=== PATIENT | female | born 1960 ===

== ENCOUNTER 2017-12-23 16:06 | Emergency (ER) | payer MEDICAID ==
[~2017-12-23] VITALS: Ht 160 cm; Wt 91.3 kg
[~2017-12-23 16:06] MED LIST: ACET325T14 PO; ENOX40SY4 SQ; FAMO-79 PO; IBUP200T49 PO; LACT1CAP24 PO; METH-356 PO; NICO-485 TD; TRAM-47 PO
[2017-12-23 16:29] VITALS: BP 162/117
[2017-12-23] MEDS ORDERED: NAPR220C2 PO (17:02)
== END 2017-12-23 18:05 | disposition home or self-care (01) ==
LOC: ED 17:50
DX: M17.0 Bilateral primary osteoarthritis of knee (principal); Z90.49 Acquired absence of other specified parts of digestive tract; F17.200 Nicotine dependence, unspecified, uncomplicated
CPT/HCPCS: 99284

== ENCOUNTER 2019-02-13 12:42 | Inpatient (IN) | payer MEDICAID ==
[~2019-02-13] VITALS: Ht 160 cm; Wt 105.0 kg
[~2019-02-13 12:42] MED LIST changes: -METH-356 PO; +METH10TA2 PO; +NAPR220C2 PO
[2019-02-13] MEDS ORDERED: PIPERACILLIN/TAZO/PMX 3.375GM 50 ML IVPB ONE (14:00)
[2019-02-13] MEDS ORDERED: PHARMACOKINETIC CONSULTATION MC ONE (14:00)
[2019-02-13] MEDS ORDERED: VANCOMYCIN PER PHARMACY MC ONE (14:00)
[2019-02-13] MEDS ORDERED: SODIUM CHLORIDE 0.9% 1,000ML IVBOLUS ONE (14:00)
[2019-02-13] MEDS ORDERED: VANCOMYCIN 1,800 MG in SODIUM CHLORIDE 0.9% 250 ML IV ONE (14:30)
[2019-02-13 14:57] LABS: MEAN CORPUSCULAR HEMOGLOBIN 30.7 pg (27.0-34.8); MEAN CORPUSCULAR HGB CONC 32.1 g/dL (32.4-35.8); MEAN CORPUSCULAR VOLUME 95.6 fL (80-100); MEAN PLATELET VOLUME 7.6 fL (7.4-10.4); PLATELET COUNT 370 x10^3/uL (130-400); RED BLOOD COUNT 3.99 x10^6/uL (3.82-5.3); RED CELL DISTRIBUTION WIDTH 14.3 % (9.6-15.2)
--- NOTE | 2019-02-13 14:57 | NUR ---
VANCO STARTED AFTER CULTURES DRAWN
[2019-02-13 14:59] LABS: MD YES
[2019-02-13] MEDS ORDERED: PHARMACOKINETIC MONITORING MC PRN (15:00)
[2019-02-13 15:09] LABS: ALBUMIN 1.7 g/dL (3.4-5.0); ANION GAP 8 mmol/L (5-15); CALCIUM 7.5 mg/dL (8.5-10.1); CHLORIDE 111 mmol/L (98-107); CREATININE 2.33 mg/dL (0.55-1.02)
--- NOTE | 2019-02-13 15:18 | NUR ---
PT RESTING QUIETLY, NO DISTRESS. ABX AND FLUIDS INFUSING. VS NOTED. PT REQUESTING FOOD, KEPT NPO PENDING POSSIBLE PROCEDURE. WILL CONTINUE TO MONITOR.
--- NOTE | 2019-02-13 15:57 | NUR ---
REPORT CALLED TO SURG
[2019-02-13 16:05] LABS: BAND#(MANUAL) 6.41 x10^3/uL; BANDS%(MANUAL) 29 % (0-7); EOS#(MANUAL) 0.22 x10^3/uL (0.0-0.4); EOS% (MANUAL) 1 % (1-7); LYMPH#(MANUAL) 0.88 x10^3/uL (1-3.4); LYMPHS% (MANUAL) 4 % (22-44); MONOS#(MANUAL) 1.55 x10^3/uL (0.3-2.7); MONOS% (MANUAL) 7 % (2-9); SEG#(MANUAL) 13.04 x10^3/uL (1.8-6.8); SEGS% (MANUAL) 59 % (42-75)
[2019-02-13 16:08] LABS: <PLATELET ESTIMATE> ADEQUATE; <PLT MORPHOLOGY> NORMAL PLT MORPH; ANISOCYTOSIS 1+; PMNS WITH VACUOLES 1+; POLYCHROMASIA 1+; TOXIC GRAN 1+
[2019-02-13] MEDS ORDERED: MIDAZOLAM 1 MG/ML, 2ML ONE (16:22)
[2019-02-13] MEDS ORDERED: FENTANYL PF 250 MCG/5ML ONE (16:22)
[2019-02-13] MEDS ORDERED: SUCCINYLCHOLINE 20 MG/ML, 10ML ONE ×2 (16:24→16:32)
[2019-02-13] MEDS ORDERED: PROPOFOL 10 MG/ML, 20ML ONE (16:32)
[2019-02-13] MEDS ORDERED: ROCURONIUM 10MG/ML,5ML ONE (16:32)
[2019-02-13] MEDS ORDERED: PHENYLEPHRINE 10 MG/ML ONE (16:32)
[2019-02-13] MEDS ORDERED: SUGAMMADEX 200 MG/2 ML IVPush ONE (16:54)
[2019-02-13] MEDS ORDERED: ONDANSETRON 2MG/ML, 2ML ONE (16:54)
[2019-02-13] MEDS ORDERED: HYDROmorphone 2 MG/ML, 1ML ONE ×2 (17:17→17:27)
[2019-02-13] MEDS: HYDROmorphone 2 MG/ML, 1ML IVPush PRN ×8 (17:18→18:05)
[2019-02-13] MEDS ORDERED: FENTANYL PF 100 MCG/2ML ONE (17:26)
[2019-02-13] MEDS ORDERED: DIAZEPAM 5 MG/ML, 2ML ONE (17:27)
[2019-02-13] MEDS ORDERED: OXYcodone 5 MG/5 ML ORAL.SOL UDC ONE (17:27)
[2019-02-13] MEDS ORDERED: PROMETHAZINE 25 MG/ML, 1ML IV PRN (17:30)
[2019-02-13] MEDS ORDERED: MIDAZOLAM 1 MG/ML, 2ML IV PRN (17:30)
[2019-02-13] MEDS ORDERED: LABETALOL 5MG/ML, 20ML IV PRN (17:30)
[2019-02-13] MEDS ORDERED: MEPERIDINE/PF 25MG/ML,1ML IVPush PRN (17:30)
[2019-02-13] MEDS ORDERED: PROMETHAZINE 12.5 MG SUPP PR PRN (17:30)
[2019-02-13] MEDS ORDERED: HALOPERIDOL 5 MG/ML IV PRN (17:30)
[2019-02-13] MEDS ORDERED: ALBUTEROL SULFATE 2.5 MG/3 ML NPPB PRN (17:30)
[2019-02-13] MEDS ORDERED: ONDANSETRON 2MG/ML, 2ML IV PRN (17:30)
[2019-02-13] MEDS ORDERED: EPHEDRINE 50 MG/ML, 1ML IVPush PRN (17:30)
[2019-02-13] MEDS ORDERED: ONDANSETRON ODT 8 MG PO PRN (17:30)
[2019-02-13] MEDS ORDERED: hydrALAzine 20 MG/ML, 1ML IV PRN (17:30)
[2019-02-13] MEDS ORDERED: OXYcodone 5 MG/5 ML ORAL.SOL UDC PO PRN (17:30)
[2019-02-13] MEDS: DIAZEPAM 5 MG/ML, 2ML IVPush PRN ×2 (17:32→17:45)
[2019-02-13] MEDS: FENTANYL PF 100 MCG/2ML IV PRN ×2 (17:35→17:45)
[2019-02-13] MEDS ORDERED: MEPERIDINE/PF 25MG/ML,1ML ONE (18:25)
[2019-02-13] MEDS ORDERED: METH10OR PO (19:38)
[2019-02-13] MEDS ORDERED: morphine SULFATE 10 MG/ML, 1ML IVPush PRN (20:00)
[2019-02-13] MEDS ORDERED: PHARMACY MAY ADJ FOR RENAL FX MC PRN (20:00)
[2019-02-13] MEDS ORDERED: VANCOMYCIN PER PHARMACY MC PRN ×2 (20:00)
[2019-02-13] MEDS ORDERED: PIPERACILLIN/TAZO/PMX 3.375GM 50 ML IV SCH ×2 (20:00→21:00)
[2019-02-13] MEDS ORDERED: POLYETHYLENE GLYCOL 17 GM PACKET PO PRN (20:30)
[2019-02-13] MEDS ORDERED: ONDANSETRON ODT 4 MG PO PRN (20:30)
[2019-02-13] MEDS ORDERED: FLU VACC QS2019-20 36MOS UP/PF 0.5 ML IM-VACC ONE (20:30)
[2019-02-13] MEDS ORDERED: BISACODYL 10 MG SUPP PR PRN (20:30)
[2019-02-13] MEDS ORDERED: ACETAMINOPHEN 325 MG TABLET PO PRN (20:30)
[2019-02-13] MEDS: PIPERACILLIN/TAZO/PMX 2.25GM 50 ML IV SCH (21:00)
[2019-02-13] MEDS ORDERED: PIPERACILLIN/TAZO/PMX 2.25GM 50 ML IV SCH (21:00)
[2019-02-13] MEDS: HEPARIN 5,000 UNITS/ML, 1ML SQ SCH (21:12)
[2019-02-13] MEDS: SODIUM CHLORIDE 0.45% 1,000 ML IV SCH (21:13)
[2019-02-13 22:00] VITALS: BP_SYST 11; BP_SYST 111; BP_DIAS 72
[2019-02-13] MEDS: NICOTINE 14MG/24 HR PATCH.TD24 TD SCH (22:18)
[2019-02-13 23:58] VITALS: BP 107/67
[2019-02-14] MEDS: PIPERACILLIN/TAZO/PMX 2.25GM 50 ML IV SCH ×6 (02:46→23:49)
[2019-02-14 04:00] VITALS: BP 106/70
[2019-02-14 04:38] LABS: MICROSCOPIC AUTO
[2019-02-14 04:43] LABS: CULTURE INDICATED? NO
[2019-02-14] MEDS: HEPARIN 5,000 UNITS/ML, 1ML SQ SCH ×3 (05:04→21:39)
[2019-02-14 05:05] LABS: MEAN CORPUSCULAR HEMOGLOBIN 30.5 pg (27.0-34.8); MEAN CORPUSCULAR HGB CONC 32.3 g/dL (32.4-35.8); MEAN CORPUSCULAR VOLUME 94.6 fL (80-100); MEAN PLATELET VOLUME 7.7 fL (7.4-10.4); PLATELET COUNT 339 x10^3/uL (130-400); RED CELL DISTRIBUTION WIDTH 14.1 % (9.6-15.2)
[2019-02-14 05:15] LABS: ALBUMIN 1.4 g/dL (3.4-5.0); ANION GAP 8 mmol/L (5-15); CALCIUM 7.2 mg/dL (8.5-10.1); CHLORIDE 111 mmol/L (98-107)
[2019-02-14 05:21] LABS: ALANINE AMINOTRANSFERASE 14 U/L (12-78); ALKALINE PHOSPHATASE 130 U/L (45-117); BILIRUBIN,TOTAL 0.3 mg/dL (0.2-1.0); CREATININE 2.36 mg/dL (0.55-1.02); TOTAL PROTEIN 6.6 g/dL (6.4-8.2)
[2019-02-14 05:44] LABS: MD YES
[2019-02-14 05:48] LABS: BAND#(MANUAL) 2.39 x10^3/uL; BANDS%(MANUAL) 13 % (0-7); EOS#(MANUAL) 0.55 x10^3/uL (0.0-0.4); EOS% (MANUAL) 3 % (1-7); LYMPHS% (MANUAL) 6 % (22-44); MONOS#(MANUAL) 0.37 x10^3/uL (0.3-2.7); MONOS% (MANUAL) 2 % (2-9); SEG#(MANUAL) 13.98 x10^3/uL (1.8-6.8); SEGS% (MANUAL) 76 % (42-75)
[2019-02-14 05:49] LABS: <PLATELET ESTIMATE> ADEQUATE; <PLT MORPHOLOGY> NORMAL PLT MORPH; <RBC MORPHOLOGY> NORMAL
[2019-02-14] MEDS: SODIUM CHLORIDE 0.45% 1,000 ML IV SCH ×2 (06:22→13:00)
[2019-02-14 07:03] VITALS: BP 108/71
[2019-02-14] MEDS: CALCIUM GLUCONATE 4.6 MEQ in SODIUM CHLORIDE 0.9% 50 ML IV SCH ×2 (08:05→21:00)
[2019-02-14] MEDS: METHADONE 5 MG TABLET PO SCH (08:05)
[2019-02-14] MEDS: SENNA/DOCUSATE TABLET PO SCH (08:06)
[2019-02-14 16:13] VITALS: BP 119/72
[2019-02-14 20:03] VITALS: BP 97/60
[2019-02-14] MEDS: NICOTINE 14MG/24 HR PATCH.TD24 TD SCH (21:38)
[2019-02-15] MEDS: CALCIUM GLUCONATE 4.6 MEQ in SODIUM CHLORIDE 0.9% 50 ML IV SCH ×3 (00:27→21:10)
[2019-02-15 02:00] VITALS: BP 112/74
[2019-02-15] MEDS: SODIUM CHLORIDE 0.45% 1,000 ML IV SCH ×3 (02:22→23:36)
[2019-02-15] MEDS: PIPERACILLIN/TAZO/PMX 2.25GM 50 ML IV SCH ×4 (05:24→23:36)
[2019-02-15] MEDS: HEPARIN 5,000 UNITS/ML, 1ML SQ SCH ×3 (05:25→21:10)
[2019-02-15 05:43] LABS: MEAN CORPUSCULAR HEMOGLOBIN 30.5 pg (27.0-34.8); MEAN CORPUSCULAR HGB CONC 32.1 g/dL (32.4-35.8); MEAN CORPUSCULAR VOLUME 95.2 fL (80-100); MEAN PLATELET VOLUME 7.6 fL (7.4-10.4); PLATELET COUNT 373 x10^3/uL (130-400); RED BLOOD COUNT 3.66 x10^6/uL (3.82-5.3); RED CELL DISTRIBUTION WIDTH 14.5 % (9.6-15.2)
[2019-02-15 05:47] LABS: ALBUMIN 1.4 g/dL (3.4-5.0); ANION GAP 6 mmol/L (5-15); CALCIUM 7.8 mg/dL (8.5-10.1); CHLORIDE 113 mmol/L (98-107)
[2019-02-15 05:50] LABS: CREATININE 2.34 mg/dL (0.55-1.02); VANCOMYCIN,RANDOM 10.2 mcg/mL
[2019-02-15 06:06] LABS: MD YES
[2019-02-15 06:11] LABS: <PLATELET ESTIMATE> ADEQUATE; <PLT MORPHOLOGY> NORMAL PLT MORPH; <RBC MORPHOLOGY> NORMAL; BAND#(MANUAL) 1.56 x10^3/uL; BANDS%(MANUAL) 12 % (0-7); BASOS#(MANUAL) 0.13 x10^3/uL (0-0.1); BASOS% (MANUAL) 1 % (0-1); EOS#(MANUAL) 0.52 x10^3/uL (0.0-0.4); EOS% (MANUAL) 4 % (1-7); LYMPHS% (MANUAL) 10 % (22-44); MONOS#(MANUAL) 0.52 x10^3/uL (0.3-2.7); MONOS% (MANUAL) 4 % (2-9); MYELOCYTES# (MANUAL) 0.13 x10^3/uL (0-0); MYELOCYTES% (MANUAL) 1 % (0-0); SEG#(MANUAL) 8.84 x10^3/uL (1.8-6.8); SEGS% (MANUAL) 68 % (42-75); TOXIC GRAN 1+
[2019-02-15 07:29] VITALS: BP 105/67
[2019-02-15] MEDS: SENNA/DOCUSATE TABLET PO SCH (07:41)
[2019-02-15] MEDS: MAGNESIUM OXIDE 400 MG TABLET PO SCH ×2 (08:44→21:11)
[2019-02-15] MEDS: ASCORBIC ACID 500 MG TABLET PO SCH ×2 (08:44→17:21)
[2019-02-15] MEDS: MULTIVITS,STRESS FORMULA 1 TABLET PO SCH (08:44)
[2019-02-15] MEDS: METHADONE 5 MG TABLET PO SCH (08:44)
[2019-02-15] MEDS ORDERED: VANCOMYCIN 1,800 MG in SODIUM CHLORIDE 0.9% 250 ML IV ONE (11:00)
[2019-02-15 14:11] VITALS: BP 127/82
[2019-02-15 20:09] VITALS: BP 135/87
[2019-02-15] MEDS: NICOTINE 14MG/24 HR PATCH.TD24 TD SCH (21:11)
[2019-02-16 02:20] VITALS: BP 140/91
[2019-02-16] MEDS: HEPARIN 5,000 UNITS/ML, 1ML SQ SCH ×3 (05:33→22:59)
[2019-02-16] MEDS: PIPERACILLIN/TAZO/PMX 2.25GM 50 ML IV SCH ×4 (05:33→23:00)
[2019-02-16 06:14] LABS: BASOPHILS # (AUTO) 0.06 x10^3/uL (0-0.1); BASOPHILS % (AUTO) 1 % (0-1); EOSINOPHILS # (AUTO) 0.43 x10^3/uL (0-0.4); EOSINOPHILS % (AUTO) 4 % (1-7); LYMPHOCYTES # (AUTO) 0.99 x10^3/uL (1-3.4); LYMPHOCYTES % (AUTO) 9 % (22-44); MD NO; MEAN CORPUSCULAR HEMOGLOBIN 30.3 pg (27.0-34.8); MEAN CORPUSCULAR HGB CONC 32.6 g/dL (32.4-35.8); MEAN CORPUSCULAR VOLUME 92.7 fL (80-100); MONOCYTES # (AUTO) 0.65 x10^3/uL (0.2-0.8); MONOCYTES % (AUTO) 6 % (2-9); NEUTROPHILS # (AUTO) 8.49 x10^3/uL (1.8-6.8); NEUTROPHILS % (AUTO) 80 % (42-75); PLATELET COUNT 379 x10^3/uL (130-400); RED BLOOD COUNT 3.93 x10^6/uL (3.82-5.3); RED CELL DISTRIBUTION WIDTH 13.9 % (9.6-15.2)
[2019-02-16 06:24] LABS: ALBUMIN 1.5 g/dL (3.4-5.0); ANION GAP 7 mmol/L (5-15); CALCIUM 8.1 mg/dL (8.5-10.1); CHLORIDE 111 mmol/L (98-107)
[2019-02-16 06:27] LABS: CREATININE 2.27 mg/dL (0.55-1.02)
[2019-02-16 06:51] VITALS: BP 155/98
[2019-02-16] MEDS: SODIUM CHLORIDE 0.45% 1,000 ML IV SCH (07:40)
[2019-02-16] MEDS: MULTIVITS,STRESS FORMULA 1 TABLET PO SCH (07:43)
[2019-02-16] MEDS: ASCORBIC ACID 500 MG TABLET PO SCH ×2 (07:43→17:00)
[2019-02-16] MEDS: MAGNESIUM OXIDE 400 MG TABLET PO SCH ×2 (07:44→22:59)
[2019-02-16] MEDS: METHADONE 5 MG TABLET PO SCH (07:44)
[2019-02-16] MEDS: SENNA/DOCUSATE TABLET PO SCH (07:45)
[2019-02-16] MEDS ORDERED: HYDROmorphone 1 MG/ML, 1ML INJ IM PRN (12:00)
[2019-02-16 13:15] VITALS: BP 134/87
[2019-02-16] MEDS ORDERED: ACET325T26 PO (16:22)
[2019-02-16] MEDS ORDERED: NICO-486 TD (16:22)
[2019-02-16] MEDS ORDERED: MAGN400T50 PO (16:22)
[2019-02-16] MEDS ORDERED: ASCO500T6 PO (16:22)
[2019-02-16] MEDS ORDERED: MULT1TAB76 PO (16:22)
[2019-02-16] MEDS ORDERED: MORP15TA PO (16:27)
[2019-02-16] MEDS ORDERED: POLY17PO5 PO (16:27)
[2019-02-16 19:11] VITALS: BP 149/101
[2019-02-16] MEDS ORDERED: LORazepam 0.5MG TABLET PO ONE (22:30)
[2019-02-16] MEDS: NICOTINE 14MG/24 HR PATCH.TD24 TD SCH (22:59)
[2019-02-16 23:11] LABS: TROPONIN I < 0.015 ng/mL (0.000-0.045)
[2019-02-17 00:26] VITALS: BP 161/106
[2019-02-17] MEDS ORDERED: FUROSEMIDE 20 MG/2 ML IV ONE (01:00)
[2019-02-17] MEDS: HEPARIN 5,000 UNITS/ML, 1ML SQ SCH ×2 (06:12→13:11)
[2019-02-17] MEDS: PIPERACILLIN/TAZO/PMX 2.25GM 50 ML IV SCH ×2 (06:12→11:21)
[2019-02-17 07:09] LABS: VANCOMYCIN,RANDOM 15.8 mcg/mL
[2019-02-17] MEDS: METHADONE 5 MG TABLET PO SCH (08:05)
[2019-02-17] MEDS: SENNA/DOCUSATE TABLET PO SCH (08:06)
[2019-02-17] MEDS: MAGNESIUM OXIDE 400 MG TABLET PO SCH (08:06)
[2019-02-17] MEDS: MULTIVITS,STRESS FORMULA 1 TABLET PO SCH (08:06)
[2019-02-17] MEDS: ASCORBIC ACID 500 MG TABLET PO SCH (08:06)
[2019-02-17 09:40] VITALS: BP 133/85
[2019-02-17] MEDS ORDERED: FLU VACC QS2019-20 36MOS UP/PF 0.5 ML IM-VACC ONE (10:30)
[2019-02-17] MEDS ORDERED: VANCOMYCIN 1,800 MG in SODIUM CHLORIDE 0.9% 250 ML IV ONE (12:00)
[2019-02-17 13:13] VITALS: BP 133/84
[2019-02-17] MEDS ORDERED: PIPE2.255 IV (14:39)
== END 2019-02-17 13:25 | DRG 871 ==
LOC: ED 14:40 → 4NE 19:03 → ED 20:58 → 4NE 20:59
PROVIDERS: ADMIT Family Medicine; ATTEND Internal Medicine
PROC: 0Y9D0ZZ Drainage of Left Upper Leg, Open Approach (ICD-10-PCS; principal; 2019-02-13 18:00)
PROC: 0T9B70Z Drainage of Bladder with Drainage Device, Via Natural or Artificial Opening (ICD-10-PCS; 2019-02-14)
PROC: 02HV33Z Insertion of Infusion Device into Superior Vena Cava, Percutaneous Approach (ICD-10-PCS; 2019-02-15)
PROC: B548ZZA Ultrasonography of Superior Vena Cava, Guidance (ICD-10-PCS; 2019-02-15)
PROC: B5181ZA Fluoroscopy of Superior Vena Cava using Low Osmolar Contrast, Guidance (ICD-10-PCS; 2019-02-15)
DX: A41.9 Sepsis, unspecified organism (principal); E43 Unspecified severe protein-calorie malnutrition; Z68.41 Body mass index [BMI] 40.0-44.9, adult; E87.2 Acidosis; L02.416 Cutaneous abscess of left lower limb; N17.9 Acute kidney failure, unspecified; F11.10 Opioid abuse, uncomplicated; F12.90 Cannabis use, unspecified, uncomplicated; F17.210 Nicotine dependence, cigarettes, uncomplicated; N18.9 Chronic kidney disease, unspecified; Z90.49 Acquired absence of other specified parts of digestive tract; Z71.51 Drug abuse counseling and surveillance of drug abuser; Z88.5 Allergy status to narcotic agent; Z88.8 Allergy status to other drugs, medicaments and biological substances; Z23 Encounter for immunization
CPT/HCPCS: 36415; 36573; 71045; 80048; 80053; 80069; 80202; 81001; 82040; 82436; 82570; 83605; 83735; 83880; 84133; 84145; 84300; 84484; 85025; 87040; 87070; 87075; 87077; 87147; 87186; 87205; 90686; 93005; 99285; G0378; J0610; J1170; J1644; J2250; J2405; J2543; J2704; J3010; J3360; J3370; C1751; J0330; J1940; J2175; J2270; J2370; J7030; J7050

== ENCOUNTER 2019-02-18 10:46 | Inpatient (IN) | payer MEDICAID ==
[~2019-02-18] VITALS: Ht 160 cm; Wt 115.0 kg
[~2019-02-18 10:46] MED LIST changes: +ACET325T26 PO; +ASCO500T6 PO; +MAGN400T50 PO; +METH10OR PO; +MORP15TA PO; +MULT1TAB76 PO; +NICO-486 TD; +PIPE2.255 IV; +POLY17PO5 PO
--- NOTE | 2019-02-18 11:04 | NUR ---
ERP AT BEDSIDE FOR EVALUATION. PT RESTING COMFORTABLY IN BED, DENIES ANY NEEDS OR CONCERNS AT THIS TIME. CALL LIGHT IN REACH.
[2019-02-18] MEDS ORDERED: HYDROmorphone 1 MG/ML, 1ML INJ ONE (11:27)
[2019-02-18] MEDS ORDERED: HYDROmorphone 2 MG/ML, 1ML IVPush ONE (11:30)
--- NOTE | 2019-02-18 11:35 | NUR ---
dr albert spoke with dr hoffmann restaurant front manager for dr mendez
[2019-02-18 11:50] LABS: MEAN CORPUSCULAR HEMOGLOBIN 30.4 pg (27.0-34.8); MEAN CORPUSCULAR HGB CONC 33.6 g/dL (32.4-35.8); MEAN CORPUSCULAR VOLUME 90.6 fL (80-100); PLATELET COUNT 339 x10^3/uL (130-400); RED BLOOD COUNT 3.96 x10^6/uL (3.82-5.3); RED CELL DISTRIBUTION WIDTH 13.6 % (9.6-15.2)
[2019-02-18 11:59] LABS: ALBUMIN 1.8 g/dL (3.4-5.0); ANION GAP 6 mmol/L (5-15); CALCIUM 7.7 mg/dL (8.5-10.1); CHLORIDE 110 mmol/L (98-107); CREATININE 2.17 mg/dL (0.55-1.02)
[2019-02-18 12:08] LABS: MD YES
[2019-02-18 12:09] LABS: BAND#(MANUAL) 0.18 x10^3/uL; BANDS%(MANUAL) 2 % (0-7); EOS#(MANUAL) 0.27 x10^3/uL (0.0-0.4); EOS% (MANUAL) 3 % (1-7); LYMPH#(MANUAL) 1.18 x10^3/uL (1-3.4); LYMPHS% (MANUAL) 13 % (22-44); METAMYELOCYTES# (MANUAL) 0.18 x10^3/uL (0-0); METAMYELOCYTES% (MANUAL) 2 % (0-1); MONOS#(MANUAL) 0.18 x10^3/uL (0.3-2.7); MONOS% (MANUAL) 2 % (2-9); SEGS% (MANUAL) 78 % (42-75)
[2019-02-18 12:10] LABS: <PLATELET ESTIMATE> ADEQUATE; <PLT MORPHOLOGY> NORMAL PLT MORPH; <RBC MORPHOLOGY> NORMAL
[2019-02-18] MEDS ORDERED: BISACODYL 10 MG SUPP PR PRN (13:00)
[2019-02-18] MEDS ORDERED: ONDANSETRON 2MG/ML, 2ML IVPush PRN (13:00)
[2019-02-18] MEDS: PIPERACILLIN/TAZO/PMX 3.375GM 50 ML IV SCH ×2 (13:00→18:34)
[2019-02-18] MEDS ORDERED: ONDANSETRON ODT 4 MG PO PRN (13:00)
[2019-02-18] MEDS ORDERED: POLYETHYLENE GLYCOL 17 GM PACKET PO PRN (13:00)
[2019-02-18] MEDS ORDERED: PIPERACILLIN/TAZO/PMX 3.375GM 50 ML ONE (13:17)
--- NOTE | 2019-02-18 13:19 | NUR ---
report to enrique beauchamp. pt in imaging at this time. atb ready to infuse.
--- NOTE | 2019-02-18 13:35 | NUR ---
PT RETURNED TO ROOM. UPDATED ON PLAN OF CARE. MEDICATED PER APR. PT AWAITING TRANSPORT AT THIS TIME. CALL LIGHT IN REACH.
[2019-02-18 13:46] LABS: TROPONIN I < 0.015 ng/mL (0.000-0.045)
[2019-02-18 13:48] VITALS: BP 148/98
[2019-02-18] MEDS: SENNA/DOCUSATE TABLET PO SCH (14:07)
[2019-02-18] MEDS: ENOXAPARIN 30 MG/0.3 ML SQ SCH (14:07)
[2019-02-18] MEDS: NICOTINE 14MG/24 HR PATCH.TD24 TD SCH (14:07)
[2019-02-18] MEDS: METHADONE 10 MG TABLET PO SCH (14:08)
[2019-02-18] MEDS ORDERED: FUROSEMIDE 20 MG/2 ML IV ONE (15:00)
[2019-02-18] MEDS: IBUPROFEN 200 MG TABLET PO PRN ×2 (15:56→22:27)
[2019-02-18 19:04] VITALS: BP 165/105
[2019-02-18 19:19] VITALS: BP 154/99
[2019-02-18] MEDS ORDERED: hydrALAzine 20 MG/ML, 1ML IV ONE (19:44)
[2019-02-18 20:42] VITALS: BP 166/88
[2019-02-18] MEDS: ACETAMINOPHEN 325 MG TABLET PO PRN (21:56)
[2019-02-19 00:22] VITALS: BP 165/95
[2019-02-19] MEDS: PIPERACILLIN/TAZO/PMX 3.375GM 50 ML IV SCH ×4 (01:30→18:46)
[2019-02-19] MEDS: IBUPROFEN 200 MG TABLET PO PRN ×2 (04:40→21:03)
[2019-02-19] MEDS: MULTIVITS,STRESS FORMULA 1 TABLET PO SCH (08:15)
[2019-02-19] MEDS: METHADONE 10 MG TABLET PO SCH (08:15)
[2019-02-19] MEDS: ACETAMINOPHEN 325 MG TABLET PO PRN ×2 (08:15→14:41)
[2019-02-19] MEDS: SENNA/DOCUSATE TABLET PO SCH (08:15)
[2019-02-19 08:37] LABS: BASOPHILS # (AUTO) 0.03 x10^3/uL (0-0.1); BASOPHILS % (AUTO) 0 % (0-1); EOSINOPHILS # (AUTO) 0.56 x10^3/uL (0-0.4); EOSINOPHILS % (AUTO) 7 % (1-7); LYMPHOCYTES # (AUTO) 1.33 x10^3/uL (1-3.4); LYMPHOCYTES % (AUTO) 17 % (22-44); MD NO; MEAN CORPUSCULAR HEMOGLOBIN 30.2 pg (27.0-34.8); MEAN CORPUSCULAR HGB CONC 32.8 g/dL (32.4-35.8); MEAN CORPUSCULAR VOLUME 92.1 fL (80-100); MEAN PLATELET VOLUME 6.9 fL (7.4-10.4); MONOCYTES # (AUTO) 0.53 x10^3/uL (0.2-0.8); MONOCYTES % (AUTO) 7 % (2-9); NEUTROPHILS # (AUTO) 5.51 x10^3/uL (1.8-6.8); NEUTROPHILS % (AUTO) 69 % (42-75); PLATELET COUNT 336 x10^3/uL (130-400); RED BLOOD COUNT 4.19 x10^6/uL (3.82-5.3); RED CELL DISTRIBUTION WIDTH 13.8 % (9.6-15.2)
[2019-02-19 08:45] LABS: ANION GAP 8 mmol/L (5-15); CHLORIDE 108 mmol/L (98-107); CREATININE 2.24 mg/dL (0.55-1.02)
[2019-02-19 08:56] VITALS: BP 168/99
[2019-02-19] MEDS: morphine SULFATE 10 MG/ML, 1ML IVPush PRN (09:33)
[2019-02-19] MEDS: ENOXAPARIN 30 MG/0.3 ML SQ SCH (13:21)
[2019-02-19 13:37] VITALS: BP 160/103
[2019-02-19] MEDS: NICOTINE 14MG/24 HR PATCH.TD24 TD SCH (13:41)
[2019-02-19] MEDS: hydrALAzine 20 MG/ML, 1ML IV PRN (14:09)
[2019-02-19 15:40] VITALS: BP 130/92
[2019-02-19 18:43] VITALS: BP 169/97
[2019-02-19] MEDS: METOPROLOL TARTRATE 25 MG TABLET PO SCH (21:31)
[2019-02-19 21:33] VITALS: BP 146/93
[2019-02-20 00:35] VITALS: BP 143/85
[2019-02-20] MEDS: PIPERACILLIN/TAZO/PMX 3.375GM 50 ML IV SCH ×3 (00:45→14:25)
[2019-02-20] MEDS: ACETAMINOPHEN 325 MG TABLET PO PRN ×4 (03:50→21:10)
[2019-02-20 06:48] LABS: ANION GAP 7 mmol/L (5-15); CALCIUM 8.1 mg/dL (8.5-10.1); CHLORIDE 109 mmol/L (98-107); CREATININE 2.17 mg/dL (0.55-1.02)
[2019-02-20 06:52] VITALS: BP 152/91
[2019-02-20 06:55] LABS: BASOPHILS # (AUTO) 0.04 x10^3/uL (0-0.1); BASOPHILS % (AUTO) 1 % (0-1); EOSINOPHILS % (AUTO) 8 % (1-7); LYMPHOCYTES # (AUTO) 1.56 x10^3/uL (1-3.4); LYMPHOCYTES % (AUTO) 18 % (22-44); MD NO; MEAN CORPUSCULAR HGB CONC 32.7 g/dL (32.4-35.8); MEAN CORPUSCULAR VOLUME 91.8 fL (80-100); MEAN PLATELET VOLUME 7.4 fL (7.4-10.4); MONOCYTES # (AUTO) 0.49 x10^3/uL (0.2-0.8); MONOCYTES % (AUTO) 6 % (2-9); NEUTROPHILS # (AUTO) 6.02 x10^3/uL (1.8-6.8); NEUTROPHILS % (AUTO) 68 % (42-75); PLATELET COUNT 337 x10^3/uL (130-400); RED BLOOD COUNT 4.07 x10^6/uL (3.82-5.3); RED CELL DISTRIBUTION WIDTH 13.9 % (9.6-15.2)
[2019-02-20 08:09] LABS: TROPONIN I 0.021 ng/mL (0.000-0.045)
[2019-02-20 08:26] LABS: CHOL/HDL RATIO 5.4
[2019-02-20] MEDS: MULTIVITS,STRESS FORMULA 1 TABLET PO SCH (08:50)
[2019-02-20] MEDS: SENNA/DOCUSATE TABLET PO SCH (08:50)
[2019-02-20] MEDS: METHADONE 10 MG TABLET PO SCH (08:50)
[2019-02-20] MEDS: METOPROLOL TARTRATE 25 MG TABLET PO SCH ×2 (08:54→20:22)
[2019-02-20] MEDS ORDERED: REGADENOSON 0.4 MG/5 ML SYRINGE ONE (09:09)
[2019-02-20] MEDS: FUROSEMIDE 20 MG TABLET PO SCH (11:03)
[2019-02-20 12:30] VITALS: BP 156/93
[2019-02-20] MEDS: NICOTINE 14MG/24 HR PATCH.TD24 TD SCH (14:24)
[2019-02-20] MEDS: ENOXAPARIN 30 MG/0.3 ML SQ SCH (14:25)
[2019-02-20] MEDS: LISINOPRIL 10 MG TABLET PO SCH (17:19)
[2019-02-20 17:20] VITALS: BP 155/94
[2019-02-20 20:07] VITALS: BP_SYST 156; BP_SYST 176; BP_DIAS 102; BP_DIAS 129
[2019-02-20] MEDS: SULFAMETH./TRIMETHOPRIM DS 800MG/160MG TABLET PO SCH (20:23)
[2019-02-20] MEDS: hydrALAzine 20 MG/ML, 1ML IV PRN (20:23)
[2019-02-20] MEDS ORDERED: ATORVASTATIN 40 MG TABLET PO SCH (21:00)
[2019-02-20 21:11] VITALS: BP 159/99
[2019-02-21 00:30] VITALS: BP 140/88
[2019-02-21 07:17] VITALS: BP 139/88
[2019-02-21] MEDS ORDERED: FURO20TA3 PO (08:05)
[2019-02-21] MEDS ORDERED: ACET325T26 PO (08:05)
[2019-02-21] MEDS ORDERED: METH10OR PO (08:05)
[2019-02-21] MEDS ORDERED: Sulfameth./Trimethoprim Ds PO (08:05)
[2019-02-21] MEDS ORDERED: LISI-167 PO (08:05)
[2019-02-21] MEDS ORDERED: ATOR40TA78 PO (08:05)
[2019-02-21] MEDS ORDERED: TRAM50TA2 PO (08:05)
[2019-02-21] MEDS ORDERED: METO-93 PO (08:05)
[2019-02-21] MEDS: MULTIVITS,STRESS FORMULA 1 TABLET PO SCH (08:26)
[2019-02-21] MEDS: METHADONE 10 MG TABLET PO SCH (08:26)
[2019-02-21] MEDS: SENNA/DOCUSATE TABLET PO SCH (08:27)
[2019-02-21] MEDS: LISINOPRIL 10 MG TABLET PO SCH (08:27)
[2019-02-21] MEDS: FUROSEMIDE 20 MG TABLET PO SCH (08:27)
[2019-02-21] MEDS: SULFAMETH./TRIMETHOPRIM DS 800MG/160MG TABLET PO SCH (08:27)
[2019-02-21] MEDS ORDERED: METOPROLOL TARTRATE 25 MG TABLET PO SCH (09:00)
[2019-02-21] MEDS: morphine SULFATE 10 MG/ML, 1ML IVPush PRN (10:55)
[2019-02-21 13:41] VITALS: BP 145/86
[2019-02-21] MEDS: ENOXAPARIN 30 MG/0.3 ML SQ SCH (13:53)
[2019-02-21] MEDS: NICOTINE 14MG/24 HR PATCH.TD24 TD SCH (13:53)
== END 2019-02-21 15:09 | disposition home or self-care (01) | DRG 603 ==
LOC: ED 11:52 → 4NE 12:27 → DCLOUNGE 02-21 14:49
PROVIDERS: ADMIT Hospitalist; ATTEND Family Medicine
PROC: 2W0PX6Z Change Pressure Dressing on Left Upper Leg (ICD-10-PCS; principal; 2019-02-18)
DX: L02.416 Cutaneous abscess of left lower limb (principal); E44.0 Moderate protein-calorie malnutrition; I50.20 Unspecified systolic (congestive) heart failure; Z68.41 Body mass index [BMI] 40.0-44.9, adult; B95.61 Methicillin susceptible Staphylococcus aureus infection as the cause of diseases classified elsewhere; E78.5 Hyperlipidemia, unspecified; G89.4 Chronic pain syndrome; I08.0 Rheumatic disorders of both mitral and aortic valves; N18.3 Chronic kidney disease, stage 3 (moderate); F17.200 Nicotine dependence, unspecified, uncomplicated; Z88.5 Allergy status to narcotic agent
CPT/HCPCS: 36415; 71046; 78452; 78582; 80048; 80061; 82040; 83880; 84484; 85025; 93005; 93017; 93306; 96374; 99285; G0378; J1170; J1650; J2543; J2785; A9502; A9540; A9558; J0360; J1940; J2270

== ENCOUNTER 2019-03-04 14:26 | Outpatient (CLI) | payer MEDICAID ==
[~2019-03-04 14:26] MED LIST changes: +ATOR40TA78 PO; +FURO20TA3 PO; +LISI-167 PO; +METO-93 PO; +Sulfameth./Trimethoprim Ds PO; +TRAM50TA2 PO
== END 2019-03-04 23:59 | disposition home or self-care (01) ==
LOC: WOUND 14:26
PROVIDERS: ATTEND Internal Medicine
DX: T81.89XA Other complications of procedures, not elsewhere classified, initial encounter (principal); M71.052 Abscess of bursa, left hip; I11.0 Hypertensive heart disease with heart failure; I50.9 Heart failure, unspecified; F17.200 Nicotine dependence, unspecified, uncomplicated; Y83.8 Other surgical procedures as the cause of abnormal reaction of the patient, or of later complication, without mention of misadventure at the time of the procedure; Y92.89 Other specified places as the place of occurrence of the external cause
CPT/HCPCS: 11042; 11045; 97605; 99215

== ENCOUNTER 2019-03-18 10:33 | Outpatient (CLI) | payer MEDICAID | END 2019-03-18 23:59 | disposition home or self-care (01) | LOC: WOUND 10:33 | PROVIDERS: ATTEND Internal Medicine | DX: T81.89XD Other complications of procedures, not elsewhere classified, subsequent encounter (principal); I13.0 Hypertensive heart and chronic kidney disease with heart failure and stage 1 through stage 4 chronic kidney disease, or unspecified chronic kidney disease; N18.3 Chronic kidney disease, stage 3 (moderate); I50.20 Unspecified systolic (congestive) heart failure; E78.5 Hyperlipidemia, unspecified; G89.4 Chronic pain syndrome; F12.90 Cannabis use, unspecified, uncomplicated; F17.210 Nicotine dependence, cigarettes, uncomplicated; F11.10 Opioid abuse, uncomplicated; Z90.49 Acquired absence of other specified parts of digestive tract; Z88.5 Allergy status to narcotic agent; Z88.8 Allergy status to other drugs, medicaments and biological substances; Z86.14 Personal history of Methicillin resistant Staphylococcus aureus infection; Y83.8 Other surgical procedures as the cause of abnormal reaction of the patient, or of later complication, without mention of misadventure at the time of the procedure | CPT/HCPCS: 97597; 97598 ==

== ENCOUNTER → 2019-03-25 | Outpatient (CLI) | payer MEDICAID | END | disposition home or self-care (01) | LOC: WOUND 10:34 | PROVIDERS: ATTEND Internal Medicine | DX: T81.89XD Other complications of procedures, not elsewhere classified, subsequent encounter (principal); I13.0 Hypertensive heart and chronic kidney disease with heart failure and stage 1 through stage 4 chronic kidney disease, or unspecified chronic kidney disease; N18.3 Chronic kidney disease, stage 3 (moderate); I50.20 Unspecified systolic (congestive) heart failure; E78.5 Hyperlipidemia, unspecified; G89.4 Chronic pain syndrome; F12.90 Cannabis use, unspecified, uncomplicated; F17.210 Nicotine dependence, cigarettes, uncomplicated; F11.10 Opioid abuse, uncomplicated; Z90.49 Acquired absence of other specified parts of digestive tract; Z88.5 Allergy status to narcotic agent; Z88.8 Allergy status to other drugs, medicaments and biological substances; Z86.14 Personal history of Methicillin resistant Staphylococcus aureus infection; Y83.8 Other surgical procedures as the cause of abnormal reaction of the patient, or of later complication, without mention of misadventure at the time of the procedure | CPT/HCPCS: 97597 ==

== ENCOUNTER 2019-04-01 08:07 | Outpatient (CLI) | payer MEDICAID | END 2019-04-01 23:59 | disposition home or self-care (01) | LOC: WOUND 08:07 | PROVIDERS: ATTEND Internal Medicine | DX: T81.89XD Other complications of procedures, not elsewhere classified, subsequent encounter (principal); I13.0 Hypertensive heart and chronic kidney disease with heart failure and stage 1 through stage 4 chronic kidney disease, or unspecified chronic kidney disease; N18.3 Chronic kidney disease, stage 3 (moderate); I50.20 Unspecified systolic (congestive) heart failure; I08.0 Rheumatic disorders of both mitral and aortic valves; G89.4 Chronic pain syndrome; E78.5 Hyperlipidemia, unspecified; F12.90 Cannabis use, unspecified, uncomplicated; F17.210 Nicotine dependence, cigarettes, uncomplicated; F11.10 Opioid abuse, uncomplicated; Z86.14 Personal history of Methicillin resistant Staphylococcus aureus infection; Z90.49 Acquired absence of other specified parts of digestive tract; Z88.5 Allergy status to narcotic agent; Z88.8 Allergy status to other drugs, medicaments and biological substances; Y83.8 Other surgical procedures as the cause of abnormal reaction of the patient, or of later complication, without mention of misadventure at the time of the procedure | CPT/HCPCS: 97597 ==

== ENCOUNTER 2019-04-08 08:17 | Outpatient (CLI) | payer MEDICAID | END 2019-04-08 23:59 | disposition home or self-care (01) | LOC: WOUND 08:17 | PROVIDERS: ATTEND Internal Medicine | DX: T81.89XD Other complications of procedures, not elsewhere classified, subsequent encounter (principal); I13.0 Hypertensive heart and chronic kidney disease with heart failure and stage 1 through stage 4 chronic kidney disease, or unspecified chronic kidney disease; N18.3 Chronic kidney disease, stage 3 (moderate); I50.20 Unspecified systolic (congestive) heart failure; I08.0 Rheumatic disorders of both mitral and aortic valves; G89.4 Chronic pain syndrome; E78.5 Hyperlipidemia, unspecified; F12.90 Cannabis use, unspecified, uncomplicated; F17.210 Nicotine dependence, cigarettes, uncomplicated; F11.10 Opioid abuse, uncomplicated; Z86.14 Personal history of Methicillin resistant Staphylococcus aureus infection; Z90.49 Acquired absence of other specified parts of digestive tract; Z88.5 Allergy status to narcotic agent; Z88.8 Allergy status to other drugs, medicaments and biological substances; Y83.8 Other surgical procedures as the cause of abnormal reaction of the patient, or of later complication, without mention of misadventure at the time of the procedure | CPT/HCPCS: 97597 ==

== ENCOUNTER → 2019-04-15 | Outpatient (CLI) | payer MEDICAID | END | disposition home or self-care (01) | LOC: WOUND 08:00 | PROVIDERS: ATTEND Internal Medicine | DX: T81.89XD Other complications of procedures, not elsewhere classified, subsequent encounter (principal); I13.0 Hypertensive heart and chronic kidney disease with heart failure and stage 1 through stage 4 chronic kidney disease, or unspecified chronic kidney disease; N18.3 Chronic kidney disease, stage 3 (moderate); I50.20 Unspecified systolic (congestive) heart failure; I08.0 Rheumatic disorders of both mitral and aortic valves; G89.4 Chronic pain syndrome; E78.5 Hyperlipidemia, unspecified; F17.210 Nicotine dependence, cigarettes, uncomplicated; F12.90 Cannabis use, unspecified, uncomplicated; F11.10 Opioid abuse, uncomplicated; Z86.14 Personal history of Methicillin resistant Staphylococcus aureus infection; Z90.49 Acquired absence of other specified parts of digestive tract; Z88.5 Allergy status to narcotic agent; Z88.8 Allergy status to other drugs, medicaments and biological substances; Y83.8 Other surgical procedures as the cause of abnormal reaction of the patient, or of later complication, without mention of misadventure at the time of the procedure | CPT/HCPCS: 97597 ==

== ENCOUNTER 2019-04-29 08:09 | Outpatient (CLI) | payer MEDICAID | END 2019-04-29 23:59 | disposition home or self-care (01) | LOC: WOUND 08:09 | PROVIDERS: ATTEND Internal Medicine | DX: T81.89XD Other complications of procedures, not elsewhere classified, subsequent encounter (principal); M71.052 Abscess of bursa, left hip; I13.0 Hypertensive heart and chronic kidney disease with heart failure and stage 1 through stage 4 chronic kidney disease, or unspecified chronic kidney disease; N18.3 Chronic kidney disease, stage 3 (moderate); I50.20 Unspecified systolic (congestive) heart failure; I08.0 Rheumatic disorders of both mitral and aortic valves; G89.4 Chronic pain syndrome; E78.5 Hyperlipidemia, unspecified; F17.210 Nicotine dependence, cigarettes, uncomplicated; F12.90 Cannabis use, unspecified, uncomplicated; F11.10 Opioid abuse, uncomplicated; Z86.14 Personal history of Methicillin resistant Staphylococcus aureus infection; Z90.49 Acquired absence of other specified parts of digestive tract; Z88.5 Allergy status to narcotic agent; Z88.8 Allergy status to other drugs, medicaments and biological substances; Y83.8 Other surgical procedures as the cause of abnormal reaction of the patient, or of later complication, without mention of misadventure at the time of the procedure | CPT/HCPCS: 97597 ==

== ENCOUNTER → 2019-05-13 | Outpatient (CLI) | payer MEDICAID | END | disposition home or self-care (01) | LOC: WOUND 08:10 | PROVIDERS: ATTEND Internal Medicine | DX: T81.89XD Other complications of procedures, not elsewhere classified, subsequent encounter (principal); M71.052 Abscess of bursa, left hip; I13.0 Hypertensive heart and chronic kidney disease with heart failure and stage 1 through stage 4 chronic kidney disease, or unspecified chronic kidney disease; N18.3 Chronic kidney disease, stage 3 (moderate); I50.20 Unspecified systolic (congestive) heart failure; I08.0 Rheumatic disorders of both mitral and aortic valves; G89.4 Chronic pain syndrome; E78.5 Hyperlipidemia, unspecified; F17.210 Nicotine dependence, cigarettes, uncomplicated; F12.90 Cannabis use, unspecified, uncomplicated; F11.10 Opioid abuse, uncomplicated; Z86.14 Personal history of Methicillin resistant Staphylococcus aureus infection; Z90.49 Acquired absence of other specified parts of digestive tract; Z88.5 Allergy status to narcotic agent; Z88.8 Allergy status to other drugs, medicaments and biological substances; Y83.8 Other surgical procedures as the cause of abnormal reaction of the patient, or of later complication, without mention of misadventure at the time of the procedure | CPT/HCPCS: 97597 ==

== ENCOUNTER 2019-06-03 08:00 | Outpatient (CLI) | payer MEDICAID | END 2019-06-03 23:59 | disposition home or self-care (01) | LOC: WOUND 08:00 | PROVIDERS: ATTEND Internal Medicine | DX: T81.89XD Other complications of procedures, not elsewhere classified, subsequent encounter (principal); M71.052 Abscess of bursa, left hip; I13.0 Hypertensive heart and chronic kidney disease with heart failure and stage 1 through stage 4 chronic kidney disease, or unspecified chronic kidney disease; N18.3 Chronic kidney disease, stage 3 (moderate); I50.20 Unspecified systolic (congestive) heart failure; I08.0 Rheumatic disorders of both mitral and aortic valves; G89.4 Chronic pain syndrome; E78.5 Hyperlipidemia, unspecified; F17.210 Nicotine dependence, cigarettes, uncomplicated; F12.90 Cannabis use, unspecified, uncomplicated; F11.10 Opioid abuse, uncomplicated; Z86.14 Personal history of Methicillin resistant Staphylococcus aureus infection; Z90.49 Acquired absence of other specified parts of digestive tract; Z88.5 Allergy status to narcotic agent; Z88.8 Allergy status to other drugs, medicaments and biological substances; Y83.8 Other surgical procedures as the cause of abnormal reaction of the patient, or of later complication, without mention of misadventure at the time of the procedure | CPT/HCPCS: 99214 ==

== ENCOUNTER 2019-10-30 06:38 | Emergency (ER) | payer MEDICAID ==
[~2019-10-30] VITALS: Ht 160 cm; Wt 98.0 kg
[~2019-10-30 06:38] MED LIST changes: -ASCO500T6 PO; +ASCO500T9 PO
[2019-10-30 06:45] VITALS: BP 133/78
[2019-10-30] MEDS ORDERED: FAMOTIDINE 20 MG TABLET PO ONE (07:30)
[2019-10-30] MEDS ORDERED: hydrOXyzine 50MG TABLET PO ONE (07:30)
[2019-10-30] MEDS ORDERED: hydrOXyzine 50MG TABLET ONE (07:33)
[2019-10-30] MEDS ORDERED: FAMOTIDINE 20 MG TABLET ONE (07:33)
== END 2019-10-30 09:25 | disposition home or self-care (01) ==
LOC: ED 07:18
DX: L23.9 Allergic contact dermatitis, unspecified cause (principal); Z90.49 Acquired absence of other specified parts of digestive tract
CPT/HCPCS: 99284; J7512

== ENCOUNTER 2020-03-31 00:23 | Inpatient (IN) | payer MEDICAID ==
[~2020-03-31] VITALS: Ht 160 cm; Wt 98.6 kg
[2020-03-31] MEDS ORDERED: METFORMIN PO (00:47)
[2020-03-31] MEDS ORDERED: VANCOMYCIN 2,000 MG in SODIUM CHLORIDE 0.9% 500 ML IV ONE (01:00)
[2020-03-31] MEDS ORDERED: CEFTRIAXONE PMX 1GM/50ML 50 ML IVPB ONE (01:00)
[2020-03-31] MEDS ORDERED: VANCOMYCIN PER PHARMACY MC ONE (01:00)
--- NOTE | 2020-03-31 01:04 | NUR ---
PT BIB EMS FROM HOME FOR DAVID ON SHOULDERS THAT STARTED A FEW WEEKS PRIOR. PT HAS BROWN DRAINAGE SOAKED BANDAGES COVERING BILATERAL SHOULDERS AND A LARGE FRONTAL ABCESS ON LEFT FRONT OF SHOULDER. POST REMOVAL OF BANDAGES LARGE WOUNDS ON THE BACK OF BOTH SHOULDERS APPEARS TO BE ULCERED AND TUNNELED UNDER THE SKIN. PURULENT DRAINAGE NOTED FROM BOTH, SKIN AROUND AREA IS REDDENED. PT ANO TO SELF PLACE AND SITUATION. PT HAS HX OF DRUG USE AND STATES WOUNDS ARE FROM INJECTION. PT PLACED ON SPO2/BP/ECG MONITORING AT THIS TIME. BEDSIDE REPORT TO JOEY SUAREZ, PT CARE TRANSFERRED AT THIS TIME.
[2020-03-31] MEDS ORDERED: CEFTRIAXONE PMX 1GM/50ML 50 ML ONE (01:21)
[2020-03-31] MEDS: SODIUM CHLORIDE 0.9% 1,000ML IVBOLUS ONE (01:28)
[2020-03-31 01:33] LABS: MEAN CORPUSCULAR HEMOGLOBIN 29.9 pg (27.0-34.8); MEAN CORPUSCULAR HGB CONC 30.9 g/dL (32.4-35.8); PLATELET COUNT 457 x10^3/uL (130-400); RED BLOOD COUNT 3.81 x10^6/uL (3.82-5.3); RED CELL DISTRIBUTION WIDTH 14.3 % (9.6-15.2)
[2020-03-31 01:45] LABS: ALBUMIN 1.7 g/dL (3.4-5.0); ANION GAP 14 mmol/L (5-15); CALCIUM 8.7 mg/dL (8.5-10.1); CHLORIDE 84 mmol/L (98-107); CREATININE 4.67 mg/dL (0.55-1.02)
[2020-03-31 01:51] LABS: C-REACTIVE PROTEIN, QUANT > 19.00 mg/dL (0.02-0.49)
[2020-03-31 01:57] LABS: MD YES
[2020-03-31 02:00] LABS: ANISOCYTOSIS 1+; BAND#(MANUAL) 1.48 x10^3/uL; BANDS%(MANUAL) 10 % (0-7); EOS#(MANUAL) 0.15 x10^3/uL (0.0-0.4); EOS% (MANUAL) 1 % (1-7); LYMPH#(MANUAL) 0.59 x10^3/uL (1-3.4); LYMPHS% (MANUAL) 4 % (22-44); METAMYELOCYTES# (MANUAL) 0.15 x10^3/uL (0-0); METAMYELOCYTES% (MANUAL) 1 % (0-1); MONOS#(MANUAL) 0.59 x10^3/uL (0.3-2.7); MONOS% (MANUAL) 4 % (2-9); MYELOCYTES% (MANUAL) 2 % (0-0); SEG#(MANUAL) 11.54 x10^3/uL (1.8-6.8); SEGS% (MANUAL) 78 % (42-75)
[2020-03-31] MEDS ORDERED: CALCIUM CHLORIDE 10%, 10ML SYR IVPush ONE (02:00)
[2020-03-31] MEDS ORDERED: SODIUM BICARB 8.4%, 50ML SYRINGE IVPush ONE (02:00)
[2020-03-31] MEDS ORDERED: INSULIN REGULAR 100 UNITS/ML, 3ML VIAL IVPush ONE (02:00)
[2020-03-31 02:01] LABS: <PLATELET ESTIMATE> INCREASED; LARGE PLATELETS 1+
[2020-03-31 02:10] LABS: HCT (SEDRATE) 36.8 % (34.6-47.8)
[2020-03-31] MEDS ORDERED: INSULIN SINGLE DOSE, ER ONE ×2 (02:17→10:50)
[2020-03-31] MEDS ORDERED: SODIUM BICARBONATE 1 MEQ/ML, 50ML VIAL ONE (02:17)
[2020-03-31] MEDS ORDERED: CALCIUM CHLORIDE 10%, 10ML SYR ONE (02:17)
[2020-03-31] MEDS ORDERED: CIPROFLOXACIN/PMX 400MG/200ML 200 ML IVPB ONE (02:30)
[2020-03-31] MEDS ORDERED: SODIUM BICARBONATE 8.4% 150 MEQ in SODIUM CHLORIDE 0.45% 1,000 ML IV SCH (02:30)
[2020-03-31] MEDS ORDERED: SODIUM ZIRCONIUM CYCLOSILICATE 5 GM PO ONE (02:30)
--- NOTE | 2020-03-31 02:46 | NUR ---
per dr piña, only 1 Liter NS bolus followed by 1L 0.45NS w/ bicarb.
--- NOTE | 2020-03-31 02:49 | NUR ---
unable to complete meds rec due to pt cannot remmeber all home meds.
--- NOTE | 2020-03-31 03:15 | NUR ---
REPORT TO MELQUIADES SUAREZ. PT CARE TRANSFERRED AT THIS TIME.
[2020-03-31] MEDS ORDERED: PROMETHAZINE 25 MG/ML, 1ML IM PRN (03:30)
[2020-03-31] MEDS ORDERED: D5%-0.45% NACL 1,000 ML IV SCH ×2 (03:30)
[2020-03-31] MEDS ORDERED: POLYETHYLENE GLYCOL 17 GM PACKET PO PRN (03:30)
[2020-03-31] MEDS ORDERED: ACETAMINOPHEN 325 MG TABLET PO PRN (03:30)
[2020-03-31] MEDS ORDERED: REGULAR INSULIN 100 UNITS in SODIUM CHLORIDE 0.9% 99 ML IV PRN (03:30)
[2020-03-31] MEDS ORDERED: DOCUSATE 100 MG CAPSULE PO PRN (03:30)
[2020-03-31] MEDS ORDERED: ONDANSETRON 2MG/ML, 2ML IVPush PRN (03:30)
[2020-03-31] MEDS ORDERED: OXYcodone/APAP 5/325MG TABLET PO PRN (03:30)
[2020-03-31] MEDS ORDERED: VANCOMYCIN PER PHARMACY MC PRN (03:30)
[2020-03-31] MEDS ORDERED: BISACODYL 10 MG SUPP PR PRN (03:30)
[2020-03-31] MEDS ORDERED: ONDANSETRON ODT 4 MG PO PRN (03:30)
[2020-03-31] MEDS ORDERED: DIPH,PERTUSS(ACELL),TET VAC/PF 0.5 ML IM-VACC ONE ×2 (03:30→03:31)
--- NOTE | 2020-03-31 03:38 | NUR ---
SPOKE WITH DR. MAN ABOUT POSSIBLE PICC LINE PLACEMENT BECAUSE OF AMOUNT OF FLUIDS, INSULIN, AND ABX NEEDED. STATES THAT PICC LINE CAN BE PLACED IN THE MORNING, AND WANTS THIS RN TO ATTEMPT ANOTHER PIV AT THIS TIME
--- NOTE | 2020-03-31 04:38 | NUR ---
blood glucose drawn, right ej placed. pt on all monitors, states no needs at this time
[2020-03-31 04:47] LABS: MEAN CORPUSCULAR HEMOGLOBIN 30.1 pg (27.0-34.8); MEAN CORPUSCULAR HGB CONC 32.6 g/dL (32.4-35.8); PLATELET COUNT 355 x10^3/uL (130-400); RED BLOOD COUNT 3.59 x10^6/uL (3.82-5.3); RED CELL DISTRIBUTION WIDTH 13.8 % (9.6-15.2)
[2020-03-31 04:59] LABS: ACETONE, SERUM Trace (Negative)
[2020-03-31 05:00] LABS: ANION GAP 11 mmol/L (5-15); CALCIUM 8.8 mg/dL (8.5-10.1); CHLORIDE 93 mmol/L (98-107); CREATININE 4.06 mg/dL (0.55-1.02); TRIGLYCERIDES 154 mg/dL (50-200); VLDL CHOLESTEROL 31 mg/dL (0-25)
[2020-03-31 05:01] LABS: CHOLESTEROL, TOTAL < 50 mg/dL (140-239)
[2020-03-31 05:10] LABS: CHOL/HDL RATIO 3.3; HDL CHOL % 0 % (28-40); HDL CHOLESTEROL (DIRECT) 15 mg/dL (40-60); LDL CHOLESTEROL,CALCULATED < 5 mg/dL (54-169)
[2020-03-31 05:17] LABS: MD YES
[2020-03-31 05:21] LABS: ANISOCYTOSIS 1+; BAND#(MANUAL) 3.17 x10^3/uL; BANDS%(MANUAL) 26 % (0-7); LYMPH#(MANUAL) 0.85 x10^3/uL (1-3.4); LYMPHS% (MANUAL) 7 % (22-44); METAMYELOCYTES# (MANUAL) 0.12 x10^3/uL (0-0); METAMYELOCYTES% (MANUAL) 1 % (0-1); MONOS#(MANUAL) 0.12 x10^3/uL (0.3-2.7); MONOS% (MANUAL) 1 % (2-9); MYELOCYTES# (MANUAL) 0.12 x10^3/uL (0-0); MYELOCYTES% (MANUAL) 1 % (0-0); SEG#(MANUAL) 7.81 x10^3/uL (1.8-6.8); SEGS% (MANUAL) 64 % (42-75)
[2020-03-31 05:22] LABS: <PLATELET ESTIMATE> ADEQUATE; LARGE PLATELETS 1+
[2020-03-31] MEDS ORDERED: PHARMACOKINETIC MONITORING MC PRN (05:30)
[2020-03-31] MEDS ORDERED: PHARMACOKINETIC CONSULTATION MC ONE (05:30)
[2020-03-31] MEDS: MEROPENEM 500 MG in SODIUM CHLORIDE 0.9% 100 ML IV SCH ×2 (06:59→16:26)
[2020-03-31] MEDS ORDERED: INSULIN GLARGINE 100 UNITS/ML, PEN SQ-INSULIN SCH (07:00)
[2020-03-31] MEDS: SODIUM CHLORIDE 0.9% 1,000 ML IV SCH ×2 (07:00→17:53)
[2020-03-31] MEDS ORDERED: INSULIN LISPRO 100 UNITS/ML, PEN SQ-INSULIN SCH ×2 (07:00→12:00)
[2020-03-31 07:02] VITALS: BP 97/59
[2020-03-31 08:36] LABS: ALBUMIN 1.5 g/dL (3.4-5.0); BILIRUBIN, DIRECT 0.2 mg/dL (0.1-0.2)
[2020-03-31 08:38] LABS: BILIRUBIN,INDIRECT 0.1 mg/dL (0.0-2.0); BILIRUBIN,TOTAL 0.3 mg/dL (0.2-1.0); TOTAL PROTEIN 7.9 g/dL (6.4-8.2)
[2020-03-31] MEDS ORDERED: NOREPINEPHRINE 1 MG/ML, 4ML ONE (10:49)
[2020-03-31] MEDS ORDERED: DAKIN'S SOLUTION 1/4 STRENGTH 1,000 ML IRRIG SOLN EXT SCH (10:49)
[2020-03-31] MEDS ORDERED: VASOPRESSIN 20 UNIT/ML, 1ML ONE (10:50)
[2020-03-31] MEDS ORDERED: FENTANYL PF 250 MCG/5ML ONE ×2 (11:00→12:31)
[2020-03-31] MEDS ORDERED: ROCURONIUM 10MG/ML,5ML ONE ×2 (11:18→11:35)
[2020-03-31] MEDS ORDERED: MIDAZOLAM 1 MG/ML, 2ML ONE (11:22)
[2020-03-31] MEDS ORDERED: DEXAMETHASONE 4 MG/ML, 1ML ONE (11:35)
[2020-03-31] MEDS ORDERED: NEOSTIGMINE 1 MG/ML, 10ML ONE (11:35)
[2020-03-31] MEDS ORDERED: CEFAZOLIN 1,000 MG ONE (11:35)
[2020-03-31] MEDS ORDERED: GLYCOPYRROLATE 0.2MG/1ML, 5ML ONE (11:35)
[2020-03-31] MEDS ORDERED: SUCCINYLCHOLINE 20 MG/ML, 10ML ONE (11:35)
[2020-03-31] MEDS ORDERED: ONDANSETRON 2MG/ML, 2ML ONE (11:35)
[2020-03-31] MEDS ORDERED: PROPOFOL 10 MG/ML, 20ML ONE (11:35)
[2020-03-31] MEDS ORDERED: PROPOFOL 100 ML IV ONE (12:27)
[2020-03-31] MEDS ORDERED: PHARMACY MAY ADJ FOR RENAL FX MC SCH (13:00)
[2020-03-31] MEDS ORDERED: LIDOCAINE-MPF 1%, 2ML ENDO PRN (13:00)
[2020-03-31] MEDS ORDERED: FENTANYL PF 100 MCG/2ML IVPush PRN (13:00)
[2020-03-31] MEDS ORDERED: DAKIN'S SOLUTION 1/4 STRENGTH 1,000 ML IRRIG SOLN EXT ONE (13:30)
[2020-03-31] MEDS: INSULIN LISPRO 100 UNITS/ML, PEN SQ-INSULIN SCH ×3 (13:35→20:45)
[2020-03-31] MEDS: morphine SULFATE 10 MG/ML, 1ML IVPush PRN (13:45)
[2020-03-31 14:46] LABS: MICROSCOPIC INDICATED
[2020-03-31] MEDS ORDERED: DAKIN'S SOLUTION 1/4 STRENGTH 1,000 ML IRRIG SOLN EXT PRN (15:30)
[2020-03-31] MEDS: FENTANYL PF 1,000 MCG in SODIUM CHLORIDE 0.9% 80 ML IV PRN (16:27)
[2020-03-31] MEDS ORDERED: FURO20TA3 PO (17:25)
[2020-03-31] MEDS: INSULIN GLARGINE 100 UNITS/ML, PEN SQ-INSULIN SCH (20:45)
[2020-03-31 22:04] LABS: AMPHETAMINE SCREEN, URINE Positive (Negative); BARBITURATE SCREEN, URINE Negative (Negative); BENZODIAZEPINE SCREEN, URINE Negative (Negative); CANNABINOID SCREEN, URINE Negative (Negative)
[2020-03-31 22:05] LABS: COCAINE SCREEN, URINE Negative (Negative); METHADONE SCREEN, URINE Positive (Negative); OPIATE SCREEN, URINE Positive (Negative)
[2020-03-31] MEDS: NOREPINEPHRINE 8 MG in SODIUM CHLORIDE 0.9% 242 ML IV PRN (22:57)
[2020-04-01] MEDS: PROPOFOL 100 ML IV PRN ×4 (00:40→23:59)
[2020-04-01] MEDS: INSULIN LISPRO 100 UNITS/ML, PEN SQ-INSULIN SCH ×6 (00:40→21:04)
[2020-04-01] MEDS: MEROPENEM 500 MG in SODIUM CHLORIDE 0.9% 100 ML IV SCH ×2 (03:15→14:39)
[2020-04-01] MEDS: SODIUM CHLORIDE 0.9% 1,000 ML IV SCH ×2 (04:33→08:23)
[2020-04-01] MEDS: FENTANYL PF 1,000 MCG in SODIUM CHLORIDE 0.9% 80 ML IV PRN ×2 (05:15→15:36)
[2020-04-01 05:25] LABS: MEAN CORPUSCULAR HGB CONC 33.3 g/dL (32.4-35.8); MEAN PLATELET VOLUME 7.8 fL (7.4-10.4); PLATELET COUNT 366 x10^3/uL (130-400); RED BLOOD COUNT 3.27 x10^6/uL (3.82-5.3); RED CELL DISTRIBUTION WIDTH 13.8 % (9.6-15.2)
[2020-04-01 05:37] LABS: ALANINE AMINOTRANSFERASE 11 U/L (12-78); ALBUMIN 1.3 g/dL (3.4-5.0); ANION GAP 10 mmol/L (5-15); CALCIUM 8.1 mg/dL (8.5-10.1); CHLORIDE 109 mmol/L (98-107); CREATININE 3.52 mg/dL (0.55-1.02)
[2020-04-01 05:40] LABS: ALKALINE PHOSPHATASE 157 U/L (45-117); BILIRUBIN,TOTAL 0.3 mg/dL (0.2-1.0); TOTAL PROTEIN 6.9 g/dL (6.4-8.2); VANCOMYCIN,RANDOM 11.1 mcg/mL
[2020-04-01 06:03] LABS: MD YES
[2020-04-01 06:06] LABS: BAND#(MANUAL) 2.27 x10^3/uL; BANDS%(MANUAL) 18 % (0-7); EOS#(MANUAL) 0.63 x10^3/uL (0.0-0.4); EOS% (MANUAL) 5 % (1-7); LYMPH#(MANUAL) 0.88 x10^3/uL (1-3.4); LYMPHS% (MANUAL) 7 % (22-44); MONOS% (MANUAL) 4 % (2-9); SEG#(MANUAL) 8.32 x10^3/uL (1.8-6.8); SEGS% (MANUAL) 66 % (42-75)
[2020-04-01 06:08] LABS: <PLATELET ESTIMATE> ADEQUATE; <PLT MORPHOLOGY> NORMAL PLT MORPH; <RBC MORPHOLOGY> NORMAL; PMNS WITH VACUOLES 1+
[2020-04-01] MEDS: INSULIN GLARGINE 100 UNITS/ML, PEN SQ-INSULIN SCH ×2 (07:54→21:05)
[2020-04-01] MEDS: PANTOPRAZOLE 40 MG IV IV SCH (08:23)
[2020-04-01] MEDS ORDERED: VANCOMYCIN 1,800 MG in SODIUM CHLORIDE 0.9% 250 ML IV ONE (09:00)
[2020-04-01] MEDS: NOREPINEPHRINE 8 MG in SODIUM CHLORIDE 0.9% 242 ML IV PRN (09:06)
[2020-04-01] MEDS: DAKIN'S SOLUTION 1/4 STRENGTH 1,000 ML IRRIG SOLN EXT SCH (11:30)
[2020-04-01] MEDS: morphine SULFATE 10 MG/ML, 1ML IVPush PRN (11:51)
[2020-04-02] MEDS: INSULIN LISPRO 100 UNITS/ML, PEN SQ-INSULIN SCH ×6 (00:52→19:44)
[2020-04-02] MEDS: NOREPINEPHRINE 8 MG in SODIUM CHLORIDE 0.9% 242 ML IV PRN ×2 (00:53→14:04)
[2020-04-02] MEDS: FENTANYL PF 1,000 MCG in SODIUM CHLORIDE 0.9% 80 ML IV PRN ×4 (00:54→21:38)
[2020-04-02] MEDS: PROPOFOL 100 ML IV PRN ×4 (03:07→21:13)
[2020-04-02] MEDS: MEROPENEM 500 MG in SODIUM CHLORIDE 0.9% 100 ML IV SCH ×2 (03:46→14:44)
[2020-04-02 04:24] LABS: ANION GAP 8 mmol/L (5-15); CALCIUM 7.9 mg/dL (8.5-10.1); CHLORIDE 116 mmol/L (98-107); CREATININE 2.53 mg/dL (0.55-1.02)
[2020-04-02 06:13] LABS: BASOPHILS % (AUTO) 0 % (0-1); EOSINOPHILS % (AUTO) 4 % (1-7); LYMPHOCYTES % (AUTO) 6 % (22-44); MEAN CORPUSCULAR HEMOGLOBIN 30.5 pg (27.0-34.8); MEAN CORPUSCULAR HGB CONC 33.7 g/dL (32.4-35.8); MEAN PLATELET VOLUME 7.8 fL (7.4-10.4); MONOCYTES % (AUTO) 6 % (2-9); NEUTROPHILS % (AUTO) 84 % (42-75); PLATELET COUNT 298 x10^3/uL (130-400); RED BLOOD COUNT 2.97 x10^6/uL (3.82-5.3); RED CELL DISTRIBUTION WIDTH 13.7 % (9.6-15.2)
[2020-04-02 06:22] LABS: MD NO
[2020-04-02] MEDS ORDERED: FLUCONAZOLE IV SCH (06:30)
[2020-04-02] MEDS: INSULIN GLARGINE 100 UNITS/ML, PEN SQ-INSULIN SCH ×2 (07:00→15:48)
[2020-04-02] MEDS: DAKIN'S SOLUTION 1/4 STRENGTH 1,000 ML IRRIG SOLN EXT SCH (09:00)
[2020-04-02] MEDS: PANTOPRAZOLE 40 MG IV IV SCH (09:06)
[2020-04-02] MEDS: METHYLNALTREXONE 12 MG/0.6 ML SYR SQ SCH (10:23)
[2020-04-02] MEDS: SODIUM CHLORIDE 0.9% 1,000 ML IV SCH (12:00)
[2020-04-02] MEDS ORDERED: PROPOFOL 10 MG/ML, 50ML ONE (15:54)
[2020-04-02] MEDS ORDERED: VANCOMYCIN 1,800 MG in SODIUM CHLORIDE 0.9% 250 ML IV SCH (21:00)
[2020-04-03] MEDS: PROPOFOL 100 ML IV PRN ×2 (00:47→03:39)
[2020-04-03] MEDS ORDERED: FENTANYL PF 2,500 MCG in SODIUM CHLORIDE 0.9% 200 ML IV PRN (01:00)
[2020-04-03] MEDS: MEROPENEM 500 MG in SODIUM CHLORIDE 0.9% 100 ML IV SCH ×2 (03:39→15:35)
[2020-04-03] MEDS: INSULIN LISPRO 100 UNITS/ML, PEN SQ-INSULIN SCH ×7 (03:52→23:46)
[2020-04-03 03:57] LABS: MEAN CORPUSCULAR HEMOGLOBIN 30.5 pg (27.0-34.8); MEAN CORPUSCULAR HGB CONC 33.6 g/dL (32.4-35.8); MEAN PLATELET VOLUME 7.7 fL (7.4-10.4); PLATELET COUNT 238 x10^3/uL (130-400); RED BLOOD COUNT 2.74 x10^6/uL (3.82-5.3); RED CELL DISTRIBUTION WIDTH 14.5 % (9.6-15.2)
[2020-04-03 04:06] LABS: ANION GAP 7 mmol/L (5-15); CALCIUM 7.5 mg/dL (8.5-10.1); CHLORIDE 119 mmol/L (98-107); CREATININE 2.17 mg/dL (0.55-1.02); TRIGLYCERIDES 139 mg/dL (50-200)
[2020-04-03 04:32] LABS: MD YES
[2020-04-03 04:38] LABS: BAND#(MANUAL) 1.51 x10^3/uL; BANDS%(MANUAL) 17 % (0-7); EOS#(MANUAL) 0.71 x10^3/uL (0.0-0.4); EOS% (MANUAL) 8 % (1-7); LYMPH#(MANUAL) 0.27 x10^3/uL (1-3.4); LYMPHS% (MANUAL) 3 % (22-44); METAMYELOCYTES# (MANUAL) 0.18 x10^3/uL (0-0); METAMYELOCYTES% (MANUAL) 2 % (0-1); MONOS#(MANUAL) 0.71 x10^3/uL (0.3-2.7); MONOS% (MANUAL) 8 % (2-9); MYELOCYTES# (MANUAL) 0.18 x10^3/uL (0-0); MYELOCYTES% (MANUAL) 2 % (0-0); SEG#(MANUAL) 5.34 x10^3/uL (1.8-6.8); SEGS% (MANUAL) 60 % (42-75)
[2020-04-03 04:40] LABS: <PLATELET ESTIMATE> ADEQUATE; <PLT MORPHOLOGY> NORMAL PLT MORPH; ANISOCYTOSIS 1+
[2020-04-03] MEDS ORDERED: MAGNESIUM SULFATE PMX 2GM/50ML 50 ML IV ONE (07:30)
[2020-04-03] MEDS: MICAFUNGIN 100 MG in SODIUM CHLORIDE 0.9% 100 ML IV SCH (07:54)
[2020-04-03] MEDS ORDERED: FLUCONAZOLE IV SCH (08:00)
[2020-04-03] MEDS: INSULIN GLARGINE 100 UNITS/ML, PEN SQ-INSULIN SCH ×2 (08:01→20:38)
[2020-04-03] MEDS: PANTOPRAZOLE 40 MG IV IV SCH (08:56)
[2020-04-03] MEDS: DAKIN'S SOLUTION 1/4 STRENGTH 1,000 ML IRRIG SOLN EXT SCH (12:30)
[2020-04-03] MEDS: hydrALAzine 20 MG/ML, 1ML IVPush PRN ×2 (13:56→23:09)
[2020-04-03] MEDS: LABETALOL 5MG/ML, 20ML IVPush PRN ×2 (15:23→23:42)
[2020-04-03] MEDS ORDERED: MORPHINE SULFATE 4 MG/ML, 1ML ONE (16:09)
[2020-04-03] MEDS: morphine SULFATE 10 MG/ML, 1ML IVPush PRN (16:12)
[2020-04-03] MEDS ORDERED: OXYcodone/APAP 10/325MG TABLET ONE (18:10)
[2020-04-03] MEDS: HEPARIN 5,000 UNITS/ML, 1ML SQ SCH (20:32)
[2020-04-03] MEDS: OXYcodone/APAP 10/325MG TABLET PO PRN (21:33)
[2020-04-04] MEDS: morphine SULFATE 10 MG/ML, 1ML IVPush PRN (00:30)
[2020-04-04] MEDS: LABETALOL 5MG/ML, 20ML IVPush PRN (03:03)
[2020-04-04] MEDS: MEROPENEM 500 MG in SODIUM CHLORIDE 0.9% 100 ML IV SCH (03:08)
[2020-04-04] MEDS: INSULIN LISPRO 100 UNITS/ML, PEN SQ-INSULIN SCH ×6 (05:04→23:35)
[2020-04-04 05:31] LABS: MEAN CORPUSCULAR HEMOGLOBIN 29.4 pg (27.0-34.8); MEAN CORPUSCULAR HGB CONC 32.9 g/dL (32.4-35.8); PLATELET COUNT 253 x10^3/uL (130-400); RED CELL DISTRIBUTION WIDTH 14.5 % (9.6-15.2)
[2020-04-04 05:38] LABS: ANION GAP 8 mmol/L (5-15); CHLORIDE 121 mmol/L (98-107)
[2020-04-04 05:47] LABS: CALCIUM 7.7 mg/dL (8.5-10.1)
[2020-04-04] MEDS: HEPARIN 5,000 UNITS/ML, 1ML SQ SCH ×3 (05:55→20:55)
[2020-04-04] MEDS: MICAFUNGIN 100 MG in SODIUM CHLORIDE 0.9% 100 ML IV SCH (05:56)
[2020-04-04] MEDS: INSULIN GLARGINE 100 UNITS/ML, PEN SQ-INSULIN SCH ×3 (05:57→22:55)
[2020-04-04 06:09] LABS: MD YES
[2020-04-04 06:12] LABS: BAND#(MANUAL) 0.79 x10^3/uL; BANDS%(MANUAL) 11 % (0-7); EOS#(MANUAL) 0.29 x10^3/uL (0.0-0.4); EOS% (MANUAL) 4 % (1-7)
[2020-04-04 06:13] LABS: LYMPH#(MANUAL) 1.37 x10^3/uL (1-3.4); LYMPHS% (MANUAL) 19 % (22-44); MONOS#(MANUAL) 0.43 x10^3/uL (0.3-2.7); MONOS% (MANUAL) 6 % (2-9); SEG#(MANUAL) 4.32 x10^3/uL (1.8-6.8); SEGS% (MANUAL) 60 % (42-75)
[2020-04-04 06:14] LABS: <PLATELET ESTIMATE> ADEQUATE; <PLT MORPHOLOGY> NORMAL PLT MORPH; POLYCHROMASIA 1+
[2020-04-04] MEDS: METHYLNALTREXONE 12 MG/0.6 ML SYR SQ SCH (09:00)
[2020-04-04] MEDS: DAKIN'S SOLUTION 1/4 STRENGTH 1,000 ML IRRIG SOLN EXT SCH (09:00)
[2020-04-04] MEDS: POTASSIUM CHLORIDE 10% 40 MEQ/30 ML UDC PO SCH ×2 (09:00→22:54)
[2020-04-04] MEDS: PANTOPRAZOLE 40 MG IV IV SCH (09:00)
[2020-04-04] MEDS: AMPICILLIN/SULBACTAM 3 GM in SODIUM CHLORIDE 0.9% 100 ML IV SCH (17:00)
[2020-04-04] MEDS: NYSTATIN 500,000 UNITS/5 ML UDC PO SCH ×2 (17:00→23:26)
[2020-04-04 19:53] VITALS: BP 161/88
[2020-04-04] MEDS: OXYcodone/APAP 10/325MG TABLET PO PRN (21:12)
[2020-04-05 00:43] VITALS: BP 165/88
[2020-04-05] MEDS: AMPICILLIN/SULBACTAM 3 GM in SODIUM CHLORIDE 0.9% 100 ML IV SCH ×2 (00:59→13:10)
[2020-04-05] MEDS: OXYcodone/APAP 10/325MG TABLET PO PRN ×3 (03:50→23:08)
[2020-04-05] MEDS: INSULIN LISPRO 100 UNITS/ML, PEN SQ-INSULIN SCH ×5 (04:00→20:22)
[2020-04-05] MEDS: HEPARIN 5,000 UNITS/ML, 1ML SQ SCH ×3 (05:45→20:21)
[2020-04-05] MEDS: NYSTATIN 500,000 UNITS/5 ML UDC PO SCH ×4 (05:45→22:57)
[2020-04-05 06:13] LABS: ANION GAP 6 mmol/L (5-15); CALCIUM 8.1 mg/dL (8.5-10.1); CHLORIDE 123 mmol/L (98-107)
[2020-04-05 06:15] LABS: CREATININE 1.48 mg/dL (0.55-1.02)
[2020-04-05] MEDS: MICAFUNGIN 100 MG in SODIUM CHLORIDE 0.9% 100 ML IV SCH (06:34)
[2020-04-05 06:43] VITALS: BP 155/84
[2020-04-05] MEDS: PANTOPRAZOLE 40 MG IV IV SCH (07:47)
[2020-04-05] MEDS: INSULIN GLARGINE 100 UNITS/ML, PEN SQ-INSULIN SCH ×2 (07:47→20:22)
[2020-04-05] MEDS: morphine SULFATE 10 MG/ML, 1ML IVPush PRN (08:07)
[2020-04-05] MEDS: DAKIN'S SOLUTION 1/4 STRENGTH 1,000 ML IRRIG SOLN EXT SCH (09:00)
[2020-04-05] MEDS ORDERED: METHADONE ORAL.SOLN 1 MG/ML PO SCH (11:30)
[2020-04-05 12:39] VITALS: BP 159/95
[2020-04-05] MEDS ORDERED: FENTANYL PF 100 MCG/2ML ONE (15:48)
[2020-04-05] MEDS ORDERED: FLUMAZENIL 0.1 MG/1 ML, 5ML ONE (15:49)
[2020-04-05] MEDS ORDERED: MIDAZOLAM 1 MG/ML, 5ML ONE ×2 (15:49)
[2020-04-05] MEDS ORDERED: NALOXONE 1 MG/ML, 2ML ONE (15:49)
[2020-04-05 19:11] VITALS: BP 154/91
[2020-04-06 00:10] VITALS: BP 132/80
[2020-04-06] MEDS: INSULIN LISPRO 100 UNITS/ML, PEN SQ-INSULIN SCH ×6 (00:28→20:31)
[2020-04-06] MEDS: AMPICILLIN/SULBACTAM 3 GM in SODIUM CHLORIDE 0.9% 100 ML IV SCH ×3 (01:08→21:25)
[2020-04-06] MEDS: NYSTATIN 500,000 UNITS/5 ML UDC PO SCH ×4 (05:36→22:59)
[2020-04-06] MEDS: HEPARIN 5,000 UNITS/ML, 1ML SQ SCH ×3 (05:37→20:30)
[2020-04-06] MEDS: MICAFUNGIN 100 MG in SODIUM CHLORIDE 0.9% 100 ML IV SCH (05:37)
[2020-04-06 05:41] LABS: MEAN CORPUSCULAR HEMOGLOBIN 30.5 pg (27.0-34.8); MEAN CORPUSCULAR HGB CONC 33.6 g/dL (32.4-35.8); MEAN PLATELET VOLUME 7.8 fL (7.4-10.4); PLATELET COUNT 276 x10^3/uL (130-400); RED BLOOD COUNT 2.79 x10^6/uL (3.82-5.3); RED CELL DISTRIBUTION WIDTH 14.2 % (9.6-15.2)
[2020-04-06 05:54] LABS: ANION GAP 11 mmol/L (5-15); CALCIUM 7.6 mg/dL (8.5-10.1); CHLORIDE 116 mmol/L (98-107); CREATININE 1.51 mg/dL (0.55-1.02)
[2020-04-06 06:32] LABS: MD YES
[2020-04-06 06:34] LABS: EOS#(MANUAL) 0.39 x10^3/uL (0.0-0.4); EOS% (MANUAL) 6 % (1-7); LYMPH#(MANUAL) 1.11 x10^3/uL (1-3.4); LYMPHS% (MANUAL) 17 % (22-44); METAMYELOCYTES% (MANUAL) 3 % (0-1); MONOS% (MANUAL) 3 % (2-9); SEG#(MANUAL) 4.62 x10^3/uL (1.8-6.8); SEGS% (MANUAL) 71 % (42-75)
[2020-04-06 06:35] LABS: POLYCHROMASIA 1+
[2020-04-06 06:39] LABS: <PLATELET ESTIMATE> ADEQUATE; <PLT MORPHOLOGY> NORMAL PLT MORPH
[2020-04-06] MEDS: OXYcodone/APAP 10/325MG TABLET PO PRN ×2 (06:43→12:31)
[2020-04-06] MEDS: METHADONE INTENSOL 10 MG/ML ORAL CONC PO SCH (07:47)
[2020-04-06] MEDS: PANTOPRAZOLE 40 MG IV IV SCH (07:48)
[2020-04-06] MEDS: METHYLNALTREXONE 12 MG/0.6 ML SYR SQ SCH (07:48)
[2020-04-06] MEDS: INSULIN GLARGINE 100 UNITS/ML, PEN SQ-INSULIN SCH ×2 (08:02→20:30)
[2020-04-06 08:07] VITALS: BP 144/98
[2020-04-06] MEDS: DAKIN'S SOLUTION 1/4 STRENGTH 1,000 ML IRRIG SOLN EXT SCH (09:00)
[2020-04-06 13:07] VITALS: BP 151/93
[2020-04-06] MEDS ORDERED: CHLORHEXIDINE 15 ML UDC ONE (13:36)
[2020-04-06] MEDS ORDERED: CHLORHEXIDINE 15 ML UDC MM ONE (14:00)
[2020-04-06] MEDS ORDERED: FENTANYL PF 100 MCG/2ML ONE ×3 (14:04→15:30)
[2020-04-06] MEDS ORDERED: HYDROmorphone 1 MG/ML, 1ML INJ IVPush PRN (14:30)
[2020-04-06] MEDS ORDERED: LABETALOL 5MG/ML, 20ML IV PRN (14:30)
[2020-04-06] MEDS ORDERED: PROMETHAZINE 25 MG/ML, 1ML IVPush PRN (14:30)
[2020-04-06] MEDS ORDERED: EPHEDRINE 50 MG/ML, 1ML IVPush PRN (14:30)
[2020-04-06] MEDS ORDERED: hydrALAzine 20 MG/ML, 1ML IV PRN (14:30)
[2020-04-06] MEDS ORDERED: ONDANSETRON 2MG/ML, 2ML IVPush PRN (14:30)
[2020-04-06] MEDS ORDERED: OXYcodone 5 MG/5 ML ORAL.SOL UDC PO PRN (14:30)
[2020-04-06] MEDS ORDERED: ONDANSETRON 2MG/ML, 2ML ONE (14:51)
[2020-04-06] MEDS ORDERED: PROPOFOL 10 MG/ML, 20ML ONE (14:51)
[2020-04-06] MEDS ORDERED: DEXAMETHASONE 4 MG/ML, 5ML ONE (14:51)
[2020-04-06] MEDS ORDERED: KETOROLAC 30 MG/1 ML ONE (14:52)
[2020-04-06] MEDS ORDERED: LIDOCAINE-MPF 2% ,5ML ONE (14:52)
[2020-04-06] MEDS ORDERED: OXYcodone 5 MG/5 ML ORAL.SOL UDC ONE (15:30)
[2020-04-06] MEDS: FENTANYL PF 100 MCG/2ML IV PRN ×2 (15:34→15:45)
[2020-04-06] MEDS ORDERED: LABETALOL 5MG/ML, 20ML ONE (15:59)
[2020-04-06] MEDS: CARVEDILOL 3.125 MG TABLET PO SCH (16:31)
[2020-04-06 20:22] VITALS: BP 145/85
[2020-04-07 01:16] VITALS: BP 121/72
[2020-04-07] MEDS: INSULIN LISPRO 100 UNITS/ML, PEN SQ-INSULIN SCH ×6 (04:00→20:18)
[2020-04-07] MEDS: HEPARIN 5,000 UNITS/ML, 1ML SQ SCH ×3 (05:23→20:18)
[2020-04-07] MEDS: NYSTATIN 500,000 UNITS/5 ML UDC PO SCH ×4 (05:23→22:23)
[2020-04-07] MEDS: CARVEDILOL 3.125 MG TABLET PO SCH ×2 (05:24→16:35)
[2020-04-07] MEDS: AMPICILLIN/SULBACTAM 3 GM in SODIUM CHLORIDE 0.9% 100 ML IV SCH ×2 (05:24→16:34)
[2020-04-07 05:38] LABS: CHLORIDE 110 mmol/L (98-107)
[2020-04-07 05:45] LABS: ALANINE AMINOTRANSFERASE 14 U/L (12-78); ALBUMIN 1.4 g/dL (3.4-5.0); ALKALINE PHOSPHATASE 122 U/L (45-117); ANION GAP 9 mmol/L (5-15); BILIRUBIN,TOTAL 0.3 mg/dL (0.2-1.0); CALCIUM 7.1 mg/dL (8.5-10.1); CREATININE 1.78 mg/dL (0.55-1.02); TOTAL PROTEIN 7.3 g/dL (6.4-8.2)
[2020-04-07] MEDS: MICAFUNGIN 100 MG in SODIUM CHLORIDE 0.9% 100 ML IV SCH (06:07)
[2020-04-07] MEDS: INSULIN GLARGINE 100 UNITS/ML, PEN SQ-INSULIN SCH ×2 (07:34→20:19)
[2020-04-07] MEDS: PANTOPRAZOLE 40 MG IV IV SCH (07:35)
[2020-04-07] MEDS: METHADONE INTENSOL 10 MG/ML ORAL CONC PO SCH (07:35)
[2020-04-07] MEDS: DAKIN'S SOLUTION 1/4 STRENGTH 1,000 ML IRRIG SOLN EXT SCH (07:36)
[2020-04-07 08:44] VITALS: BP 148/81
[2020-04-07] MEDS: OXYcodone/APAP 10/325MG TABLET PO PRN ×2 (10:47→20:18)
[2020-04-07 13:27] VITALS: BP 131/79
[2020-04-07 19:55] VITALS: BP 124/73
[2020-04-08 00:35] VITALS: BP 110/69
[2020-04-08] MEDS: NYSTATIN 500,000 UNITS/5 ML UDC PO SCH ×4 (04:27→21:28)
[2020-04-08] MEDS: HEPARIN 5,000 UNITS/ML, 1ML SQ SCH ×3 (04:27→21:28)
[2020-04-08] MEDS: AMPICILLIN/SULBACTAM 3 GM in SODIUM CHLORIDE 0.9% 100 ML IV SCH ×2 (04:28→17:52)
[2020-04-08] MEDS: CARVEDILOL 3.125 MG TABLET PO SCH ×2 (05:36→17:57)
[2020-04-08] MEDS: PANTOPRAZOLE 40MG TABLET PO SCH (05:36)
[2020-04-08] MEDS: MICAFUNGIN 100 MG in SODIUM CHLORIDE 0.9% 100 ML IV SCH (05:36)
[2020-04-08] MEDS: OXYcodone/APAP 10/325MG TABLET PO PRN ×2 (06:04→21:30)
[2020-04-08 06:17] LABS: ANION GAP 10 mmol/L (5-15); CHLORIDE 108 mmol/L (98-107)
[2020-04-08 06:18] LABS: CREATININE 1.69 mg/dL (0.55-1.02)
[2020-04-08] MEDS: INSULIN LISPRO 100 UNITS/ML, PEN SQ-INSULIN SCH ×4 (07:00→21:00)
[2020-04-08 08:00] VITALS: BP 152/84
[2020-04-08] MEDS: METHYLNALTREXONE 12 MG/0.6 ML SYR SQ SCH (08:13)
[2020-04-08] MEDS: INSULIN GLARGINE 100 UNITS/ML, PEN SQ-INSULIN SCH ×2 (08:19→21:28)
[2020-04-08] MEDS: METHADONE INTENSOL 10 MG/ML ORAL CONC PO SCH (08:19)
[2020-04-08] MEDS: DAKIN'S SOLUTION 1/4 STRENGTH 1,000 ML IRRIG SOLN EXT SCH (08:47)
[2020-04-08 13:59] VITALS: BP 129/77
[2020-04-08 20:00] VITALS: BP 127/84
[2020-04-09 01:59] VITALS: BP 134/91
[2020-04-09] MEDS: AMPICILLIN/SULBACTAM 3 GM in SODIUM CHLORIDE 0.9% 100 ML IV SCH ×2 (05:06→17:32)
[2020-04-09] MEDS: CARVEDILOL 3.125 MG TABLET PO SCH ×2 (05:07→17:36)
[2020-04-09] MEDS: NYSTATIN 500,000 UNITS/5 ML UDC PO SCH ×4 (05:07→22:22)
[2020-04-09] MEDS: HEPARIN 5,000 UNITS/ML, 1ML SQ SCH ×3 (05:07→22:22)
[2020-04-09 05:49] LABS: BASOPHILS % (AUTO) 1 % (0-1); EOSINOPHILS % (AUTO) 5 % (1-7); LYMPHOCYTES % (AUTO) 25 % (22-44); MEAN CORPUSCULAR HEMOGLOBIN 30.5 pg (27.0-34.8); MEAN PLATELET VOLUME 7.7 fL (7.4-10.4); MONOCYTES % (AUTO) 8 % (2-9); NEUTROPHILS % (AUTO) 61 % (42-75); PLATELET COUNT 453 x10^3/uL (130-400); RED CELL DISTRIBUTION WIDTH 14.2 % (9.6-15.2)
[2020-04-09] MEDS: MICAFUNGIN 100 MG in SODIUM CHLORIDE 0.9% 100 ML IV SCH (05:59)
[2020-04-09] MEDS: PANTOPRAZOLE 40MG TABLET PO SCH (05:59)
[2020-04-09 06:00] LABS: MD NO
[2020-04-09 06:05] LABS: CHLORIDE 110 mmol/L (98-107)
[2020-04-09 06:10] LABS: ANION GAP 9 mmol/L (5-15); CALCIUM 7.4 mg/dL (8.5-10.1); CREATININE 1.56 mg/dL (0.55-1.02)
[2020-04-09] MEDS: INSULIN LISPRO 100 UNITS/ML, PEN SQ-INSULIN SCH ×4 (07:00→22:47)
[2020-04-09] MEDS: INSULIN GLARGINE 100 UNITS/ML, PEN SQ-INSULIN SCH ×2 (07:00→17:58)
[2020-04-09] MEDS: DAKIN'S SOLUTION 1/4 STRENGTH 1,000 ML IRRIG SOLN EXT SCH (07:16)
[2020-04-09 07:56] VITALS: BP 121/75
[2020-04-09] MEDS: OXYcodone/APAP 10/325MG TABLET PO PRN ×2 (08:09→22:22)
[2020-04-09] MEDS: METHADONE INTENSOL 10 MG/ML ORAL CONC PO SCH (08:10)
[2020-04-09 11:33] VITALS: BP 122/72
[2020-04-09] MEDS ORDERED: FENTANYL PF 100 MCG/2ML ONE (13:18)
[2020-04-09] MEDS ORDERED: MIDAZOLAM 1 MG/ML, 2ML ONE (13:18)
[2020-04-09] MEDS ORDERED: PROPOFOL 10 MG/ML, 20ML ONE (13:19)
[2020-04-09] MEDS ORDERED: LIDOCAINE-MPF 2% ,5ML ONE (13:20)
[2020-04-09] MEDS ORDERED: SUCCINYLCHOLINE 20 MG/ML, 10ML ONE (13:21)
[2020-04-09] MEDS ORDERED: MEPERIDINE/PF 25MG/0.5ML IVPush PRN (14:30)
[2020-04-09] MEDS ORDERED: DIAZEPAM 5 MG/ML, 2ML IVPush PRN (14:30)
[2020-04-09] MEDS ORDERED: FENTANYL PF 100 MCG/2ML IV PRN (14:30)
[2020-04-09] MEDS ORDERED: OXYcodone 5 MG/5 ML ORAL.SOL UDC PO PRN (14:30)
[2020-04-09] MEDS ORDERED: DIPHENHYDRAMINE 50 MG/ML, 1ML IVPush PRN (14:30)
[2020-04-09] MEDS ORDERED: ONDANSETRON 2MG/ML, 2ML IVPush PRN (14:30)
[2020-04-09] MEDS ORDERED: PROMETHAZINE 25 MG/ML, 1ML IVPush PRN (14:30)
[2020-04-09] MEDS ORDERED: HYDROmorphone 1 MG/ML, 1ML INJ IVPush PRN (14:30)
[2020-04-09 18:27] LABS: MICROSCOPIC NOT IND
[2020-04-09 18:35] LABS: CHLORIDE,URINE RANDOM 83 mmol/L; POTASSIUM,URINE RANDOM 25 mmol/L; SODIUM,URINE RANDOM 88 mmol/L
[2020-04-09 19:30] VITALS: BP 129/88
[2020-04-10 00:28] VITALS: BP 122/80
[2020-04-10] MEDS: HEPARIN 5,000 UNITS/ML, 1ML SQ SCH ×3 (04:26→20:39)
[2020-04-10] MEDS: NYSTATIN 500,000 UNITS/5 ML UDC PO SCH ×4 (04:26→22:09)
[2020-04-10] MEDS: AMPICILLIN/SULBACTAM 3 GM in SODIUM CHLORIDE 0.9% 100 ML IV SCH ×2 (04:27→16:51)
[2020-04-10] MEDS: PANTOPRAZOLE 40MG TABLET PO SCH (05:06)
[2020-04-10] MEDS: CARVEDILOL 3.125 MG TABLET PO SCH ×2 (05:07→16:50)
[2020-04-10] MEDS: MICAFUNGIN 100 MG in SODIUM CHLORIDE 0.9% 100 ML IV SCH (05:11)
[2020-04-10] MEDS: OXYcodone/APAP 10/325MG TABLET PO PRN ×3 (05:12→22:12)
[2020-04-10] MEDS: INSULIN LISPRO 100 UNITS/ML, PEN SQ-INSULIN SCH ×4 (07:00→20:50)
[2020-04-10 07:20] VITALS: BP 104/68
[2020-04-10] MEDS: METHYLNALTREXONE 12 MG/0.6 ML SYR SQ SCH (09:00)
[2020-04-10] MEDS: METHADONE INTENSOL 10 MG/ML ORAL CONC PO SCH (09:06)
[2020-04-10] MEDS: INSULIN GLARGINE 100 UNITS/ML, PEN SQ-INSULIN SCH ×2 (09:07→20:51)
[2020-04-10 09:15] LABS: BASOPHILS % (AUTO) 1 % (0-1); EOSINOPHILS % (AUTO) 5 % (1-7); LYMPHOCYTES % (AUTO) 24 % (22-44); MEAN CORPUSCULAR HEMOGLOBIN 30.8 pg (27.0-34.8); MEAN CORPUSCULAR HGB CONC 33.7 g/dL (32.4-35.8); MEAN PLATELET VOLUME 7.7 fL (7.4-10.4); MONOCYTES % (AUTO) 7 % (2-9); NEUTROPHILS % (AUTO) 63 % (42-75); PLATELET COUNT 473 x10^3/uL (130-400); RED BLOOD COUNT 2.87 x10^6/uL (3.82-5.3); RED CELL DISTRIBUTION WIDTH 14.2 % (9.6-15.2)
[2020-04-10 09:18] LABS: MD NO
[2020-04-10 09:23] LABS: ALANINE AMINOTRANSFERASE 15 U/L (12-78); ALBUMIN 1.7 g/dL (3.4-5.0); ANION GAP 9 mmol/L (5-15); CHLORIDE 107 mmol/L (98-107)
[2020-04-10 09:29] LABS: % IRON SATURATION 13 % (20-55); ALKALINE PHOSPHATASE 126 U/L (45-117); BILIRUBIN,TOTAL 0.2 mg/dL (0.2-1.0); CREATINE KINASE, TOTAL 19 U/L (26-192); CREATININE 1.78 mg/dL (0.55-1.02); IRON LEVEL 24 mcg/dL (50-170); TOTAL IRON BINDING CAPACITY 186 mcg/dL (250-450); TOTAL PROTEIN 7.3 g/dL (6.4-8.2)
[2020-04-10] MEDS: IRON SUCROSE COMPLEX 100MG/5ML IV SCH (11:50)
[2020-04-10] MEDS: ERGOCALCIFEROL 50,000 UNIT CAPSULE PO SCH (11:56)
[2020-04-10 12:39] VITALS: BP 125/80
[2020-04-10] MEDS: DAKIN'S SOLUTION 1/4 STRENGTH 1,000 ML IRRIG SOLN EXT SCH (15:45)
[2020-04-10 16:30] VITALS: BP 134/83
[2020-04-10 19:25] VITALS: BP 107/63
[2020-04-11 00:41] VITALS: BP 114/72
[2020-04-11] MEDS: AMPICILLIN/SULBACTAM 3 GM in SODIUM CHLORIDE 0.9% 100 ML IV SCH ×2 (04:29→17:12)
[2020-04-11] MEDS: NYSTATIN 500,000 UNITS/5 ML UDC PO SCH ×4 (04:29→22:30)
[2020-04-11] MEDS: HEPARIN 5,000 UNITS/ML, 1ML SQ SCH ×3 (04:29→20:29)
[2020-04-11] MEDS: CARVEDILOL 3.125 MG TABLET PO SCH ×2 (05:16→17:36)
[2020-04-11] MEDS: PANTOPRAZOLE 40MG TABLET PO SCH (05:16)
[2020-04-11] MEDS: MICAFUNGIN 100 MG in SODIUM CHLORIDE 0.9% 100 ML IV SCH (05:16)
[2020-04-11] MEDS: OXYcodone/APAP 10/325MG TABLET PO PRN ×3 (05:23→20:30)
[2020-04-11 05:46] LABS: BASOPHILS % (AUTO) 1 % (0-1); EOSINOPHILS % (AUTO) 7 % (1-7); LYMPHOCYTES % (AUTO) 22 % (22-44); MEAN CORPUSCULAR HEMOGLOBIN 30.9 pg (27.0-34.8); MEAN CORPUSCULAR HGB CONC 33.9 g/dL (32.4-35.8); MEAN PLATELET VOLUME 7.6 fL (7.4-10.4); MONOCYTES % (AUTO) 8 % (2-9); NEUTROPHILS % (AUTO) 62 % (42-75); PLATELET COUNT 521 x10^3/uL (130-400); RED CELL DISTRIBUTION WIDTH 13.9 % (9.6-15.2)
[2020-04-11 05:51] LABS: HCT (SEDRATE) 22.8 % (34.6-47.8)
[2020-04-11 05:52] LABS: ALANINE AMINOTRANSFERASE 14 U/L (12-78); ALBUMIN 1.6 g/dL (3.4-5.0); ANION GAP 10 mmol/L (5-15); CALCIUM 7.1 mg/dL (8.5-10.1); CHLORIDE 108 mmol/L (98-107); CREATININE 1.75 mg/dL (0.55-1.02)
[2020-04-11 05:57] LABS: ALKALINE PHOSPHATASE 136 U/L (45-117); BILIRUBIN,TOTAL 0.2 mg/dL (0.2-1.0); TOTAL PROTEIN 7.3 g/dL (6.4-8.2)
[2020-04-11 06:22] LABS: MD SCAN
[2020-04-11 06:33] LABS: SEDIMENTATION RATE > 120 mm/hr (0-20)
[2020-04-11] MEDS: INSULIN LISPRO 100 UNITS/ML, PEN SQ-INSULIN SCH ×4 (07:00→20:24)
[2020-04-11] MEDS: INSULIN GLARGINE 100 UNITS/ML, PEN SQ-INSULIN SCH ×2 (07:44→20:29)
[2020-04-11 08:05] VITALS: BP 131/84
[2020-04-11] MEDS: DAKIN'S SOLUTION 1/4 STRENGTH 1,000 ML IRRIG SOLN EXT SCH (09:00)
[2020-04-11] MEDS: METHADONE INTENSOL 10 MG/ML ORAL CONC PO SCH (09:19)
[2020-04-11] MEDS: IRON SUCROSE COMPLEX 100MG/5ML IV SCH (12:02)
[2020-04-11 12:40] VITALS: BP 152/84
[2020-04-11 18:44] VITALS: BP 142/78
[2020-04-12 00:58] VITALS: BP 120/77
[2020-04-12] MEDS: OXYcodone/APAP 10/325MG TABLET PO PRN ×2 (02:00→10:51)
[2020-04-12] MEDS: MICAFUNGIN 100 MG in SODIUM CHLORIDE 0.9% 100 ML IV SCH (04:30)
[2020-04-12] MEDS: PANTOPRAZOLE 40MG TABLET PO SCH (06:18)
[2020-04-12] MEDS: NYSTATIN 500,000 UNITS/5 ML UDC PO SCH ×4 (06:18→22:23)
[2020-04-12] MEDS: AMPICILLIN/SULBACTAM 3 GM in SODIUM CHLORIDE 0.9% 100 ML IV SCH ×3 (06:18→22:23)
[2020-04-12] MEDS: HEPARIN 5,000 UNITS/ML, 1ML SQ SCH ×3 (06:18→22:23)
[2020-04-12] MEDS: CARVEDILOL 3.125 MG TABLET PO SCH ×2 (06:18→17:38)
[2020-04-12 06:23] LABS: BASOPHILS % (AUTO) 1 % (0-1); EOSINOPHILS % (AUTO) 5 % (1-7); LYMPHOCYTES % (AUTO) 21 % (22-44); MEAN CORPUSCULAR HEMOGLOBIN 30.7 pg (27.0-34.8); MEAN CORPUSCULAR HGB CONC 33.7 g/dL (32.4-35.8); MEAN PLATELET VOLUME 7.5 fL (7.4-10.4); MONOCYTES % (AUTO) 9 % (2-9); NEUTROPHILS % (AUTO) 64 % (42-75); PLATELET COUNT 510 x10^3/uL (130-400); RED BLOOD COUNT 2.42 x10^6/uL (3.82-5.3); RED CELL DISTRIBUTION WIDTH 14.7 % (9.6-15.2)
[2020-04-12 06:32] LABS: ANION GAP 9 mmol/L (5-15); CALCIUM 7.5 mg/dL (8.5-10.1); CHLORIDE 106 mmol/L (98-107); CREATININE 1.76 mg/dL (0.55-1.02)
[2020-04-12 07:01] VITALS: BP 121/76
[2020-04-12 07:15] LABS: MD SCAN
[2020-04-12] MEDS: METHADONE INTENSOL 10 MG/ML ORAL CONC PO SCH (08:50)
[2020-04-12] MEDS: METHYLNALTREXONE 12 MG/0.6 ML SYR SQ SCH (08:50)
[2020-04-12] MEDS: INSULIN GLARGINE 100 UNITS/ML, PEN SQ-INSULIN SCH ×2 (08:51→19:58)
[2020-04-12] MEDS: INSULIN LISPRO 100 UNITS/ML, PEN SQ-INSULIN SCH ×4 (08:52→19:58)
[2020-04-12] MEDS: DAKIN'S SOLUTION 1/4 STRENGTH 1,000 ML IRRIG SOLN EXT SCH (09:00)
[2020-04-12] MEDS: IRON SUCROSE COMPLEX 100MG/5ML IV SCH (10:51)
[2020-04-12 13:08] VITALS: BP 128/77
[2020-04-12 18:59] VITALS: BP 138/87
[2020-04-13 00:34] VITALS: BP 109/70
[2020-04-13] MEDS: MICAFUNGIN 100 MG in SODIUM CHLORIDE 0.9% 100 ML IV SCH (04:29)
[2020-04-13] MEDS: NYSTATIN 500,000 UNITS/5 ML UDC PO SCH ×3 (04:35→17:59)
[2020-04-13] MEDS: OXYcodone/APAP 10/325MG TABLET PO PRN ×3 (04:36→22:01)
[2020-04-13 05:44] VITALS: BP 125/76
[2020-04-13] MEDS: AMPICILLIN/SULBACTAM 3 GM in SODIUM CHLORIDE 0.9% 100 ML IV SCH ×3 (05:44→22:00)
[2020-04-13] MEDS: HEPARIN 5,000 UNITS/ML, 1ML SQ SCH ×3 (05:45→22:00)
[2020-04-13] MEDS: CARVEDILOL 3.125 MG TABLET PO SCH ×2 (05:46→17:58)
[2020-04-13] MEDS: PANTOPRAZOLE 40MG TABLET PO SCH (05:46)
[2020-04-13 06:43] VITALS: BP 117/63
[2020-04-13] MEDS: INSULIN LISPRO 100 UNITS/ML, PEN SQ-INSULIN SCH ×4 (07:00→20:38)
[2020-04-13] MEDS: METHADONE INTENSOL 10 MG/ML ORAL CONC PO SCH (09:28)
[2020-04-13] MEDS: INSULIN GLARGINE 100 UNITS/ML, PEN SQ-INSULIN SCH ×2 (09:28→20:47)
[2020-04-13] MEDS: IRON SUCROSE COMPLEX 100MG/5ML IV SCH (10:56)
[2020-04-13 13:08] VITALS: BP 132/80
[2020-04-13] MEDS: morphine SULFATE 10 MG/ML, 1ML IVPush PRN (14:38)
[2020-04-13 17:57] VITALS: BP 118/79
[2020-04-13 20:01] VITALS: BP 122/77
[2020-04-14 01:34] VITALS: BP 112/72
[2020-04-14] MEDS: MICAFUNGIN 100 MG in SODIUM CHLORIDE 0.9% 100 ML IV SCH (04:27)
[2020-04-14 04:51] LABS: BASOPHILS % (AUTO) 1 % (0-1); EOSINOPHILS % (AUTO) 5 % (1-7); LYMPHOCYTES % (AUTO) 18 % (22-44); MEAN CORPUSCULAR HEMOGLOBIN 30.9 pg (27.0-34.8); MEAN CORPUSCULAR HGB CONC 33.3 g/dL (32.4-35.8); MEAN PLATELET VOLUME 7.5 fL (7.4-10.4); MONOCYTES % (AUTO) 9 % (2-9); NEUTROPHILS % (AUTO) 68 % (42-75); PLATELET COUNT 555 x10^3/uL (130-400); RED BLOOD COUNT 2.43 x10^6/uL (3.82-5.3); RED CELL DISTRIBUTION WIDTH 14.9 % (9.6-15.2)
[2020-04-14 04:59] LABS: ANION GAP 10 mmol/L (5-15); CALCIUM 7.6 mg/dL (8.5-10.1); CHLORIDE 105 mmol/L (98-107)
[2020-04-14 05:01] LABS: % IRON SATURATION 46 % (20-55); CREATININE 1.77 mg/dL (0.55-1.02); IRON LEVEL 88 mcg/dL (50-170); TOTAL IRON BINDING CAPACITY 190 mcg/dL (250-450)
[2020-04-14 05:18] LABS: MD SCAN
[2020-04-14 05:32] VITALS: BP 117/71
[2020-04-14] MEDS: PANTOPRAZOLE 40MG TABLET PO SCH (05:33)
[2020-04-14] MEDS: CARVEDILOL 3.125 MG TABLET PO SCH ×2 (05:33→17:42)
[2020-04-14] MEDS: NYSTATIN 500,000 UNITS/5 ML UDC PO SCH ×4 (05:33→17:43)
[2020-04-14] MEDS: HEPARIN 5,000 UNITS/ML, 1ML SQ SCH ×3 (05:34→23:01)
[2020-04-14] MEDS: AMPICILLIN/SULBACTAM 3 GM in SODIUM CHLORIDE 0.9% 100 ML IV SCH ×3 (05:35→23:00)
[2020-04-14 06:22] VITALS: BP 112/60
[2020-04-14] MEDS: INSULIN LISPRO 100 UNITS/ML, PEN SQ-INSULIN SCH ×4 (07:00→20:04)
[2020-04-14] MEDS: OXYcodone/APAP 10/325MG TABLET PO PRN (07:14)
[2020-04-14] MEDS: INSULIN GLARGINE 100 UNITS/ML, PEN SQ-INSULIN SCH ×2 (08:41→20:04)
[2020-04-14] MEDS: METHADONE INTENSOL 10 MG/ML ORAL CONC PO SCH (08:42)
[2020-04-14] MEDS: METHYLNALTREXONE 12 MG/0.6 ML SYR SQ SCH (08:42)
[2020-04-14] MEDS: IRON SUCROSE COMPLEX 100MG/5ML IV SCH (11:46)
[2020-04-14 12:04] VITALS: BP 126/73
[2020-04-14] MEDS: morphine SULFATE 10 MG/ML, 1ML IVPush PRN (14:49)
[2020-04-14 17:42] VITALS: BP 159/84
[2020-04-14 20:03] VITALS: BP 127/81
[2020-04-15] MEDS: NYSTATIN 500,000 UNITS/5 ML UDC PO SCH ×5 (00:05→23:01)
[2020-04-15 01:55] VITALS: BP 132/74
[2020-04-15] MEDS: MICAFUNGIN 100 MG in SODIUM CHLORIDE 0.9% 100 ML IV SCH (04:27)
[2020-04-15 05:27] VITALS: BP 122/70
[2020-04-15] MEDS: OXYcodone/APAP 10/325MG TABLET PO PRN ×2 (05:27→23:07)
[2020-04-15] MEDS: CARVEDILOL 3.125 MG TABLET PO SCH ×2 (05:28→17:42)
[2020-04-15] MEDS: PANTOPRAZOLE 40MG TABLET PO SCH (05:28)
[2020-04-15] MEDS: AMPICILLIN/SULBACTAM 3 GM in SODIUM CHLORIDE 0.9% 100 ML IV SCH ×3 (06:31→22:56)
[2020-04-15] MEDS: INSULIN LISPRO 100 UNITS/ML, PEN SQ-INSULIN SCH ×4 (07:00→20:54)
[2020-04-15 07:28] VITALS: BP 125/77
[2020-04-15 07:38] VITALS: BP 106/71
[2020-04-15] MEDS: HEPARIN 5,000 UNITS/ML, 1ML SQ SCH ×3 (08:09→22:55)
[2020-04-15] MEDS: METHADONE INTENSOL 10 MG/ML ORAL CONC PO SCH (08:52)
[2020-04-15] MEDS: INSULIN GLARGINE 100 UNITS/ML, PEN SQ-INSULIN SCH ×2 (09:00→20:54)
[2020-04-15] MEDS: morphine SULFATE 10 MG/ML, 1ML IVPush PRN (10:52)
[2020-04-15 14:06] VITALS: BP 137/75
[2020-04-15 19:33] VITALS: BP 96/59
[2020-04-16 01:34] VITALS: BP 107/60
[2020-04-16] MEDS: MICAFUNGIN 100 MG in SODIUM CHLORIDE 0.9% 100 ML IV SCH (04:14)
[2020-04-16] MEDS: NYSTATIN 500,000 UNITS/5 ML UDC PO SCH ×4 (05:08→23:18)
[2020-04-16] MEDS: PANTOPRAZOLE 40MG TABLET PO SCH (05:08)
[2020-04-16 05:57] VITALS: BP 126/64
[2020-04-16] MEDS: CARVEDILOL 3.125 MG TABLET PO SCH ×2 (06:02→17:14)
[2020-04-16] MEDS: AMPICILLIN/SULBACTAM 3 GM in SODIUM CHLORIDE 0.9% 100 ML IV SCH ×3 (06:17→23:10)
[2020-04-16] MEDS: HEPARIN 5,000 UNITS/ML, 1ML SQ SCH ×3 (07:00→23:10)
[2020-04-16] MEDS: INSULIN LISPRO 100 UNITS/ML, PEN SQ-INSULIN SCH ×4 (07:00→21:04)
[2020-04-16] MEDS ORDERED: FENTANYL PF 100 MCG/2ML ONE (07:21)
[2020-04-16] MEDS ORDERED: MIDAZOLAM 1 MG/ML, 2ML ONE (07:21)
[2020-04-16] MEDS ORDERED: SUCCINYLCHOLINE 20 MG/ML, 10ML ONE (07:36)
[2020-04-16] MEDS ORDERED: CEFAZOLIN 1,000 MG ONE (07:36)
[2020-04-16] MEDS ORDERED: SUGAMMADEX 200 MG/2 ML IVPush ONE (07:36)
[2020-04-16] MEDS ORDERED: ONDANSETRON 2MG/ML, 2ML ONE (07:36)
[2020-04-16] MEDS ORDERED: ROCURONIUM 10 MG/ML,10ML ONE (07:36)
[2020-04-16] MEDS ORDERED: DIAZEPAM 5 MG/ML, 2ML IV PRN ×2 (08:00)
[2020-04-16] MEDS ORDERED: HYDROmorphone 1 MG/ML, 1ML INJ IV PRN (08:00)
[2020-04-16] MEDS ORDERED: hydrALAzine 20 MG/ML, 1ML IV PRN (08:00)
[2020-04-16] MEDS ORDERED: MEPERIDINE/PF 25MG/0.5ML IVPush PRN (08:00)
[2020-04-16] MEDS ORDERED: LABETALOL 5MG/ML, 20ML IV PRN (08:00)
[2020-04-16] MEDS ORDERED: ALBUTEROL SULFATE 2.5 MG/3 ML NPPB PRN (08:00)
[2020-04-16] MEDS ORDERED: PROMETHAZINE 25 MG/ML, 1ML IV PRN (08:00)
[2020-04-16] MEDS ORDERED: FENTANYL PF 100 MCG/2ML IV PRN (08:00)
[2020-04-16] MEDS ORDERED: ONDANSETRON 2MG/ML, 2ML IVPush PRN (08:00)
[2020-04-16] MEDS ORDERED: OXYcodone 5 MG/5 ML ORAL.SOL UDC PO PRN (08:00)
[2020-04-16] MEDS ORDERED: KETOROLAC 30 MG/1 ML IV PRN (08:00)
[2020-04-16] MEDS ORDERED: METOCLOPRAMIDE 5 MG/ML, 2ML IV PRN (08:00)
[2020-04-16] MEDS ORDERED: OXYcodone 5 MG/5 ML ORAL.SOL UDC ONE (08:28)
[2020-04-16] MEDS ORDERED: KETOROLAC 30 MG/1 ML ONE (08:28)
[2020-04-16] MEDS: METHADONE INTENSOL 10 MG/ML ORAL CONC PO SCH (09:12)
[2020-04-16] MEDS: METHYLNALTREXONE 12 MG/0.6 ML SYR SQ SCH (09:12)
[2020-04-16] MEDS: INSULIN GLARGINE 100 UNITS/ML, PEN SQ-INSULIN SCH ×2 (09:20→21:11)
[2020-04-16] MEDS: OXYcodone/APAP 10/325MG TABLET PO PRN ×2 (09:25→21:19)
[2020-04-16 13:29] VITALS: BP 117/72
[2020-04-16] MEDS: morphine SULFATE 10 MG/ML, 1ML IVPush PRN (14:05)
[2020-04-16] MEDS: LABETALOL 5MG/ML, 20ML IVPush PRN (17:14)
[2020-04-16 17:29] VITALS: BP 138/95
[2020-04-16 19:17] VITALS: BP 139/77
[2020-04-17 01:36] VITALS: BP 125/81
[2020-04-17] MEDS: OXYcodone/APAP 10/325MG TABLET PO PRN ×2 (03:06→20:05)
[2020-04-17] MEDS: MICAFUNGIN 100 MG in SODIUM CHLORIDE 0.9% 100 ML IV SCH (04:30)
[2020-04-17] MEDS: CARVEDILOL 3.125 MG TABLET PO SCH ×2 (06:09→18:25)
[2020-04-17] MEDS: PANTOPRAZOLE 40MG TABLET PO SCH (06:09)
[2020-04-17] MEDS: NYSTATIN 500,000 UNITS/5 ML UDC PO SCH ×2 (06:09→12:05)
[2020-04-17 06:15] VITALS: BP 137/71
[2020-04-17] MEDS: AMPICILLIN/SULBACTAM 3 GM in SODIUM CHLORIDE 0.9% 100 ML IV SCH ×3 (06:54→23:04)
[2020-04-17] MEDS: INSULIN LISPRO 100 UNITS/ML, PEN SQ-INSULIN SCH ×4 (07:00→20:06)
[2020-04-17] MEDS: METHADONE INTENSOL 10 MG/ML ORAL CONC PO SCH (08:06)
[2020-04-17] MEDS: HEPARIN 5,000 UNITS/ML, 1ML SQ SCH ×3 (08:06→23:04)
[2020-04-17] MEDS: INSULIN GLARGINE 100 UNITS/ML, PEN SQ-INSULIN SCH ×2 (08:07→20:05)
[2020-04-17] MEDS: ERGOCALCIFEROL 50,000 UNIT CAPSULE PO SCH (12:04)
[2020-04-17 13:42] VITALS: BP 139/78
[2020-04-17 18:25] VITALS: BP 148/101
[2020-04-17 19:33] VITALS: BP 111/64
[2020-04-18 00:47] VITALS: BP 147/91
[2020-04-18] MEDS: MICAFUNGIN 100 MG in SODIUM CHLORIDE 0.9% 100 ML IV SCH (04:27)
[2020-04-18] MEDS: CARVEDILOL 3.125 MG TABLET PO SCH (06:05)
[2020-04-18] MEDS: PANTOPRAZOLE 40MG TABLET PO SCH (06:05)
[2020-04-18 06:30] LABS: HCT (SEDRATE) 23.1 % (34.6-47.8)
[2020-04-18 06:32] LABS: MEAN CORPUSCULAR HEMOGLOBIN 31.9 pg (27.0-34.8); MEAN CORPUSCULAR HGB CONC 33.5 g/dL (32.4-35.8); MEAN PLATELET VOLUME 7.3 fL (7.4-10.4); PLATELET COUNT 422 x10^3/uL (130-400); RED BLOOD COUNT 2.42 x10^6/uL (3.82-5.3); RED CELL DISTRIBUTION WIDTH 18.7 % (9.6-15.2)
[2020-04-18 06:35] LABS: ALANINE AMINOTRANSFERASE 16 U/L (12-78); ALBUMIN 2.2 g/dL (3.4-5.0); ANION GAP 8 mmol/L (5-15); CALCIUM 7.8 mg/dL (8.5-10.1); CHLORIDE 108 mmol/L (98-107)
[2020-04-18 06:42] LABS: ALKALINE PHOSPHATASE 168 U/L (45-117); BILIRUBIN,TOTAL 0.2 mg/dL (0.2-1.0); TOTAL PROTEIN 7.9 g/dL (6.4-8.2)
[2020-04-18] MEDS: INSULIN LISPRO 100 UNITS/ML, PEN SQ-INSULIN SCH ×2 (07:00→11:00)
[2020-04-18 07:12] VITALS: BP 148/85
[2020-04-18 07:25] LABS: SEDIMENTATION RATE > 120 mm/hr (0-20)
[2020-04-18 07:32] LABS: MD YES
[2020-04-18 07:34] LABS: <PLATELET ESTIMATE> INCREASED; <PLT MORPHOLOGY> NORMAL PLT MORPH; ANISOCYTOSIS 1+; BAND#(MANUAL) 0.31 x10^3/uL; BANDS%(MANUAL) 4 % (0-7); EOS#(MANUAL) 0.69 x10^3/uL (0.0-0.4); EOS% (MANUAL) 9 % (1-7); LYMPH#(MANUAL) 1.23 x10^3/uL (1-3.4); LYMPHS% (MANUAL) 16 % (22-44); METAMYELOCYTES# (MANUAL) 0.08 x10^3/uL (0-0); METAMYELOCYTES% (MANUAL) 1 % (0-1); MONOS#(MANUAL) 0.54 x10^3/uL (0.3-2.7); MONOS% (MANUAL) 7 % (2-9); POLYCHROMASIA 1+; SEG#(MANUAL) 4.85 x10^3/uL (1.8-6.8); SEGS% (MANUAL) 63 % (42-75)
[2020-04-18] MEDS: AMPICILLIN/SULBACTAM 3 GM in SODIUM CHLORIDE 0.9% 100 ML IV SCH ×2 (08:29→13:57)
[2020-04-18] MEDS: METHYLNALTREXONE 12 MG/0.6 ML SYR SQ SCH ×2 (08:29→08:35)
[2020-04-18] MEDS: INSULIN GLARGINE 100 UNITS/ML, PEN SQ-INSULIN SCH (08:30)
[2020-04-18] MEDS: METHADONE INTENSOL 10 MG/ML ORAL CONC PO SCH (08:30)
[2020-04-18] MEDS: HEPARIN 5,000 UNITS/ML, 1ML SQ SCH ×2 (08:31→13:58)
[2020-04-18 12:26] VITALS: BP 131/88
[2020-04-18] MEDS ORDERED: CEPH500T PO (12:59)
[2020-04-18] MEDS ORDERED: FLUC200T4 PO (12:59)
== END 2020-04-18 14:09 | disposition left against medical advice (07) | DRG 853 ==
LOC: ED 01:24 → EDIP 02:25 → CCU 05:07 → 3N 04-04 19:15
PROVIDERS: ADMIT Internal Medicine; ATTEND Hospitalist
PROC: 0JBF0ZZ Excision of Left Upper Arm Subcutaneous Tissue and Fascia, Open Approach (ICD-10-PCS; 2020-03-31)
PROC: 0JBD0ZZ Excision of Right Upper Arm Subcutaneous Tissue and Fascia, Open Approach (ICD-10-PCS; 2020-03-31)
PROC: 5A1945Z Respiratory Ventilation, 24-96 Consecutive Hours (ICD-10-PCS; 2020-03-31)
PROC: 0J9F0ZX Drainage of Left Upper Arm Subcutaneous Tissue and Fascia, Open Approach, Diagnostic (ICD-10-PCS; 2020-03-31)
PROC: 0J9D0ZX Drainage of Right Upper Arm Subcutaneous Tissue and Fascia, Open Approach, Diagnostic (ICD-10-PCS; 2020-03-31)
PROC: 02HV33Z Insertion of Infusion Device into Superior Vena Cava, Percutaneous Approach (ICD-10-PCS; 2020-03-31)
PROC: 0BH17EZ Insertion of Endotracheal Airway into Trachea, Via Natural or Artificial Opening (ICD-10-PCS; principal; 2020-03-31 11:00)
PROC: 0JBD0ZZ Excision of Right Upper Arm Subcutaneous Tissue and Fascia, Open Approach (ICD-10-PCS; 2020-04-06)
PROC: 0KB50ZZ Excision of Right Shoulder Muscle, Open Approach (ICD-10-PCS; 2020-04-06)
PROC: 0JBD0ZZ Excision of Right Upper Arm Subcutaneous Tissue and Fascia, Open Approach (ICD-10-PCS; 2020-04-09)
PROC: 0J9D0ZZ Drainage of Right Upper Arm Subcutaneous Tissue and Fascia, Open Approach (ICD-10-PCS; 2020-04-09)
PROC: 02HV33Z Insertion of Infusion Device into Superior Vena Cava, Percutaneous Approach (ICD-10-PCS; 2020-04-11)
PROC: B548ZZA Ultrasonography of Superior Vena Cava, Guidance (ICD-10-PCS; 2020-04-11)
PROC: B5181ZA Fluoroscopy of Superior Vena Cava using Low Osmolar Contrast, Guidance (ICD-10-PCS; 2020-04-11)
DX: A41.01 Sepsis due to Methicillin susceptible Staphylococcus aureus (principal); E11.00 Type 2 diabetes mellitus with hyperosmolarity without nonketotic hyperglycemic-hyperosmolar coma (NKHHC); E11.10 Type 2 diabetes mellitus with ketoacidosis without coma; G93.41 Metabolic encephalopathy; J96.01 Acute respiratory failure with hypoxia; M72.6 Necrotizing fasciitis; N17.0 Acute kidney failure with tubular necrosis; R65.21 Severe sepsis with septic shock; E46 Unspecified protein-calorie malnutrition; E87.0 Hyperosmolality and hypernatremia; E87.1 Hypo-osmolality and hyponatremia; F11.20 Opioid dependence, uncomplicated; I13.0 Hypertensive heart and chronic kidney disease with heart failure and stage 1 through stage 4 chronic kidney disease, or unspecified chronic kidney disease; I42.9 Cardiomyopathy, unspecified; I50.42 Chronic combined systolic (congestive) and diastolic (congestive) heart failure; L02.31 Cutaneous abscess of buttock; L02.413 Cutaneous abscess of right upper limb; L02.414 Cutaneous abscess of left upper limb; L03.114 Cellulitis of left upper limb; L03.113 Cellulitis of right upper limb; N18.4 Chronic kidney disease, stage 4 (severe); Z99.11 Dependence on respirator [ventilator] status; B19.20 Unspecified viral hepatitis C without hepatic coma; D63.8 Anemia in other chronic diseases classified elsewhere; E11.22 Type 2 diabetes mellitus with diabetic chronic kidney disease; E78.5 Hyperlipidemia, unspecified; E83.51 Hypocalcemia; E87.5 Hyperkalemia; F12.90 Cannabis use, unspecified, uncomplicated; F15.10 Other stimulant abuse, uncomplicated; F17.210 Nicotine dependence, cigarettes, uncomplicated; I34.0 Nonrheumatic mitral (valve) insufficiency; S41.001A Unspecified open wound of right shoulder, initial encounter; S41.002A Unspecified open wound of left shoulder, initial encounter; Z79.4 Long term (current) use of insulin; Z83.3 Family history of diabetes mellitus; Z82.49 Family history of ischemic heart disease and other diseases of the circulatory system; Z90.49 Acquired absence of other specified parts of digestive tract; Z91.19 Patient's noncompliance with other medical treatment and regimen; Z20.822 Contact with and (suspected) exposure to COVID-19; B96.89 Other specified bacterial agents as the cause of diseases classified elsewhere; Z88.5 Allergy status to narcotic agent; X58.XXXA Exposure to other specified factors, initial encounter
CPT/HCPCS: 36415; 36600; 74018; 84145; 87106; 87806; 96365; 96368; 96375; 99291; J3490; 36573; 71045; 80048; 80053; 80061; 80074; 80076; 80202; 80307; 81001; 81003; 82010; 82040; 82306; 82330; 82436; 82550; 82570; 82728; 82803; 82947; 82962; 83036; 83540; 83550; 83605; 83690; 83735; 83970; 84100; 84133; 84156; 84300; 84443; 84478; 84550; 85018; 85025; 85651; 86140; 86592; 87015; 87040; 87070; 87075; 87077; 87081; 87102; 87116; 87186; 87205; 87206; 87521; 87522; 87635; 93005; 93306; 94002; 94003; 99285; G0378; J0295; J0690; J0696; J1100; J1450; J1644; J1756; J1815; J1885; J2185; J2248; J2250; J2405; J2550; J2704; J2710; J3010; J3370; J7030; C1751; C9113; G0475; J0330; J0360; J2270; J2310; J3475; J7040; J7050

== ENCOUNTER 2020-05-05 11:21 | Emergency (ER) | payer MEDICAID ==
[~2020-05-05] VITALS: Ht 160 cm; Wt 90.0 kg
[~2020-05-05 11:21] MED LIST changes: +CEPH500T PO; +FLUC200T4 PO; +METFORMIN PO
[2020-05-05 11:24] VITALS: BP 138/80
--- NOTE | 2020-05-05 12:37 | NUR ---
PER ELVIRA ROMERO, THIS RN REMOVED ALL SUTURES FROM FRONT AND BACK LEFT SHOULDER, AND EVERY OTHER SUTURE FRONT BACK RIGHT SHOULDER AND APPLY STERI STRIPS TO AREA OF REMOVED SUTURES.
== END 2020-05-05 12:46 | disposition home or self-care (01) ==
LOC: ED 11:33
DX: S41.011D Laceration without foreign body of right shoulder, subsequent encounter (principal); F17.210 Nicotine dependence, cigarettes, uncomplicated; E11.9 Type 2 diabetes mellitus without complications; M19.90 Unspecified osteoarthritis, unspecified site; Z90.49 Acquired absence of other specified parts of digestive tract; X58.XXXD Exposure to other specified factors, subsequent encounter
CPT/HCPCS: 99281

== ENCOUNTER 2020-05-09 15:04 | Emergency (ER) | payer MEDICAID ==
[~2020-05-09] VITALS: Ht 160 cm; Wt 90.3 kg
[2020-05-09 15:14] VITALS: BP 106/48
--- NOTE | 2020-05-09 15:35 | NUR ---
MOBILE DEVELOPER: PT TO ROOM FROM [facility]
== END 2020-05-09 16:24 | disposition home or self-care (01) ==
LOC: ED 16:15
DX: S41.011D Laceration without foreign body of right shoulder, subsequent encounter (principal); M19.90 Unspecified osteoarthritis, unspecified site; X58.XXXD Exposure to other specified factors, subsequent encounter
CPT/HCPCS: 99282

== ENCOUNTER 2020-07-27 13:53 | Emergency (ER) | payer MEDICAID ==
[~2020-07-27] VITALS: Ht 160 cm; Wt 92.3 kg
[2020-07-27] MEDS ORDERED: CEFTRIAXONE 1,000 MG IM ONE (15:00)
[2020-07-27] MEDS ORDERED: CEFTRIAXONE 1,000 MG ONE (15:15)
--- NOTE | 2020-07-27 15:22 | NUR ---
PT MEDICATED PER MAR.
[2020-07-27 15:36] VITALS: BP 107/61
== END 2020-07-27 15:47 | disposition home or self-care (01) ==
LOC: ED 15:44
DX: L03.115 Cellulitis of right lower limb (principal); L40.0 Psoriasis vulgaris
CPT/HCPCS: 96372; 99283; J0696